=== PATIENT | male | born 1995 | race Hispanic/Latino ===

== ENCOUNTER 2020-09-25 21:45 | Emergency (ER) | payer BC, MEDICAID ==
[2020-09-25] MEDS ORDERED: SODIUM CHLORIDE 0.9% 1000 ML 1,000 ML IV ONE (22:03)
[2020-09-25] MEDS ORDERED: FAMOTIDINE 20 MG/2 ML INJ IV ONE (22:03)
[2020-09-25] MEDS ORDERED: ONDANSETRON 4 MG/2 ML INJ IV ONE (22:03)
[2020-09-25] MEDS ORDERED: MORPHINE 4 MG/1 ML INJ IV ONE (22:03)
[2020-09-25 22:47] LABS: Bilirubin,Urine NEG (Negative); Blood,Urine NEG (Negative); Color,Urine Straw (Yellow); Mucus,Urine FEW /HPF; Protein,Urine <15 mg/dL mg/dL (Negative); Urobilinogen,Urine < 2.0 mg/dL (<2.0); WBC,Urine < 1.0 /HPF (0.0-6.0)
[2020-09-25 23:31] LABS: Basophils % (Auto) 0.7 % (0.0-1.8); Eosinophils % (Auto) 0.8 % (0.0-4.3); Hematocrit 41.6 % (35.5-45.6); Hemoglobin 14.8 gm/dl (11.8-15.2); Lymphocytes # (Auto) 1.9 K/mm3 (1.2-5.4); Lymphocytes % (Auto) 34.1 % (13.4-35.0); Mean Corpuscular HGB Conc 36 % (32-34); Mean Corpuscular Volume 84 fl (84-94); Monocytes # (Auto) 0.3 K/mm3 (0.0-0.8); Monocytes % (Auto) 6.2 % (0.0-7.3); Platelet Count 189 K/mm3 (140-440); Red Blood Count 4.94 M/mm3 (3.65-5.03); Red Cell Distribution Width 12.9 % (13.2-15.2)
[2020-09-25] MEDS ORDERED: METOCLOPRAMIDE 10 MG/2 ML INJ IV ONE ×2 (23:50→23:52)
[2020-09-25] MEDS ORDERED: diphenhydrAMINE 50 MG/ML VIAL IV ONE ×2 (23:50→23:52)
[2020-09-25 23:51] LABS: Alanine Aminotransferase 15 units/L (7-56); Albumin 4.8 g/dL (3.9-5); BUN/Creatinine Ratio 12; Blood Urea Nitrogen 11 mg/dL (9-20); Calcium 8.7 mg/dL (8.4-10.2); Hemolysis Index 3
--- NOTE | 2020-09-25 23:58 | Ultrasound Report ---
ULTRASOUND ABDOMEN, LIMITED (RIGHT UPPER QUADRANT) INDICATION: RUQ Pain COMPARISON: None available. LIMITATIONS: None FINDINGS: Pancreas: Visualized portion shows no significant abnormality. Liver: Slight patchy fatty infiltration is seen. Liver is not enlarged. Hepatic length measures 14 cm . Gallbladder: No wall thickening is seen. No definite gallstones are noted. There may be a small amoun t of sludge. Bile ducts: Normal. Common Bile Duct measures 4 mm. Right Kidney: Visualized portions show no abnormality. Free fluid: None. Additional Findings: None. IMPRESSION: No acute abnormalities are seen. Signer Name: Pravin Dove MD Signed: 09/25/2020 11:53 PM Workstation Name: [id number]
[2020-09-26 00:10] VITALS: BP 136/85
[2020-09-26] MEDS ORDERED: HYDROmorphone 1 MG/1 ML INJ ONE (00:10)
--- NOTE | 2020-09-26 01:06 | Emergency Department Report ---
ED Abdominal Pain HPI - General Chief Complaint: Abdominal Pain Stated Complaint: ABD PAIN Source: patient Mode of arrival: Ambulatory Limitations: No Limitations - History of Present Illness Initial Comments: Patient is a 25-year-old white male with no past medical history presents to the ED with complaint of acute onset persistent intractable nausea and vomiting and right upper quadrant pain that radiates to the right flank and right lower quadrant area for the last 10 days worse in the last 4 days. Patient states that he has been to various hospital emergency departments and has had extensive work-up in the last 10 days. Patient also states that he had an appointment about 8 hours ago with the GI physician who after evaluation and realized how uncomfortable he was, advised him to come to the ED for evaluation. Patient states that he has not been able to eat or sleep because of worsening pain with nausea and vomiting. Patient denies fever, chills, dizziness, syncope, diarrhea, dysuria, urinary frequency and urgency, testicular pain, hematuria, chest pain or shortness of breath traumatic injury, low back pain, heavy lifting or fall. MD Complaint: abdominal pain (RUQ and RLQ abdominal pain), other (Nausea and vomiting) -: Sudden, days(s) (10) Location: RUQ, RLQ, R flank Radiation: RUQ, RLQ, R flank Migration to: no migration Severity scale (0 -10): 9 Quality: aching, sharp Consistency: constant Improves With: nothing Worsens With: vomiting, movement Associated Symptoms: denies other symptoms, nausea, vomiting, anorexia. denies: diarrhea, chills, constipation, dysuria, hematemesis, hematochezia, melena, other - Related Data Previous Rx's Medication Instructions Recorded Last Taken Type Famotidine [Pepcid] 20 mg PO Q12H #60 tablet 09/26/20 Unknown Rx HYDROcodone/APAP 5-325 [Foster 1 each PO Q6HR PRN #12 tablet 09/26/20 Unknown Rx 5/325] Ketorolac [Toradol] 10 mg PO Q8H PRN #20 tablet 09/26/20 Unknown Rx Ondansetron [Zofran Odt] 4 mg PO Q6HR PRN #20 tab.rapdis 09/26/20 Unknown Rx Allergies Allergy/AdvReac Type Severity Reaction Status Date / Time No Known Allergies Allergy Verified 09/26/20 00:12 ED Review of Systems ROS: Stated complaint: ABD PAIN Other details as noted in HPI Constitutional: denies: chills, fever Eyes: denies: eye pain, eye discharge, vision change ENT: denies: ear pain, throat pain Respiratory: denies: cough, shortness of breath, wheezing Cardiovascular: denies: chest pain, palpitations Endocrine: no symptoms reported Gastrointestinal: abdominal pain (Palpable severe RUQ, RLQ and Right flank tenderness with guarding and rebound), nausea, vomiting. denies: diarrhea, constipation, hematemesis, melena, hematochezia Genitourinary: denies: urgency, dysuria Musculoskeletal: denies: back pain, joint swelling, arthralgia Skin: denies: rash, lesions Neurological: denies: headache, weakness, paresthesias Psychiatric: denies: anxiety, depression Hematological/Lymphatic: denies: easy bleeding, easy bruising ED Past Medical Hx - Past Medical History Previous Medical History?: Yes Additional medical history: a-fib - Surgical History Past Surgical History?: Yes Hx Appendectomy: Yes - Social History Smoking Status: Never Smoker Substance Use Type: Marijuana - Medications Home Medications: Home Medications Medication Instructions Recorded Confirmed Last Taken Type Famotidine [Pepcid] 20 mg PO Q12H #60 tablet 09/26/20 Unknown Rx HYDROcodone/APAP 5-325 [Foster 1 each PO Q6HR PRN #12 tablet 09/26/20 Unknown Rx 5/325] Ketorolac [Toradol] 10 mg PO Q8H PRN #20 tablet 09/26/20 Unknown Rx Ondansetron [Zofran Odt] 4 mg PO Q6HR PRN #20 tab.rapdis 09/26/20 Unknown Rx ED Physical Exam - General Limitations: No Limitations General appearance: alert, in no apparent distress, anxious - Head Head exam: Present: atraumatic, normocephalic, normal inspection - Eye Eye exam: Present: normal appearance, PERRL, EOMI Pupils: Present: normal accommodation - ENT ENT exam: Present: normal exam, normal orophraynx, mucous membranes moist, TM's normal bilaterally, normal external ear exam - Neck Neck exam: Present: normal inspection, full ROM - Respiratory Respiratory exam: Present: normal lung sounds bilaterally. Absent: respiratory distress, wheezes, rales, rhonchi, chest wall tenderness, accessory muscle use, decreased breath sounds, prolonged expiratory - Cardiovascular Cardiovascular Exam: Present: regular rate, normal rhythm, normal heart sounds. Absent: systolic murmur, diastolic murmur, rubs, gallop - GI/Abdominal GI/Abdominal exam: Present: soft, tenderness (Palpable severe right upper quad rant, right lower quadrant and right flank rebound tenderness with guarding), guarding, rebound, normal bowel sounds. Absent: rigid, hyperactive bowel sounds, hypoactive bowel sounds, organomegaly - Extremities Exam Extremities exam: Present: normal inspection, full ROM, normal capillary refill - Back Exam Back exam: Present: normal inspection, full ROM, CVA tenderness (R). Absent: tenderness, CVA tenderness (L), muscle spasm, paraspinal tenderness, vertebral tenderness - Neurological Exam Neurological exam: Present: alert, oriented X3, CN II-XII intact, normal gait, reflexes normal - Psychiatric Psychiatric exam: Present: normal affect, normal mood, anxious - Skin Skin exam: Present: warm, dry, intact, normal color. Absent: rash ED Course Vital Signs 09/25/20 09/26/20 21:52 00:08 Temperature 97.9 F Pulse Rate 98 H 84 Respiratory 18 16 Rate Blood Pressure 183/83 Blood Pressure 136/85 [Left] O2 Sat by Pulse 100 100 Oximetry ED Medical Decision Making - Lab Data Result diagrams: 09/25/20 23:00 09/25/20 23:00 - Radiology Data Radiology results: report reviewed, image reviewed [facility] [address] [place] [address] Ultrasound Report Signed Patient: ARGENTINA BOWDEN MR#: [id number] : 1995 Acct:[id number] Age/Sex: 25 / M ADM Date: 09/25/20 Loc: ED Attending Dr: Ordering Physician: JENNY AMBROSE Date of Service: 09/25/20 Procedure(s): US abdomen limited Accession Number(s): [id number] cc: JENNY AMBROSE ULTRASOUND ABDOMEN, LIMITED (RIGHT UPPER QUADRANT) INDICATION: RUQ Pain COMPARISON: None available. LIMITATIONS: None FINDINGS: Pancreas: Visualized portion shows no significant abnormality. Liver: Slight patchy fatty infiltration is seen. Liver is not enlarged. Hepatic length measures 14 cm. Gallbladder: No wall thickening is seen. No definite gallstones are noted. There may be a small amount of sludge. Bile ducts: Normal. Common Bile Duct measures 4 mm. Right Kidney: Visualized portions show no abnormality. Free fluid: None. Additional Findings: None. IMPRESSION: No acute abnormalities are seen. Signer Name: Pravin Dove MD Signed: 09/25/2020 11:53 PM Workstation Name: [id number] Transcribed By: GJ Dictated By: Pravin Dove MD Electronically Authenticated By: Pravin Dove MD Signed Date/Time: 09/25/202352 DD/ 51 TD/TT: -- [facility] [address] [place] [address] Cat Scan Report Signed Patient: ARGENTINA BOWDEN MR#: [id number] : 1995 Acct:[id number] Age/Sex: 25 / M ADM Date: 09/25/20 Loc: ED Attending Dr: Ordering Physician: JENNY AMBROSE Date of Service: 09/26/20 Procedure(s): CT abdomen pelvis w con Accession Number(s): [id number] cc: JENNY AMBROSE CT ABDOMEN AND PELVIS WITH CONTRAST INDICATION: R.U.Q. abdominal pain CONTRAST: 100 cc Omnipaque 300 IV COMPARISON: Right upper quadrant ultrasound tonight All CT scans at this location are performed using CT dose reduction for ALARA by means of automated exposure control. FINDINGS: Lung bases are clear. No pneumoperitoneum is seen. No masses are noted. No focal inflammatory changes are seen. No free fluid is noted. No evidence of bowel obstruction is seen. No urinary obstructive changes are noted. Appendix appears to have been removed. Gallbladder shows fairly diffuse increased density. Gallbladder is mildly contracted. No definite wall thickening or inflammation is seen. No biliary dilatation is noted. IMPRESSION: No obvious acute abnormalities are seen. Gallbladder shows increased density which has an appearance most resembling vicarious contrast opacification. Ultrasound tonight showed no obvious calculi with only mild possible sludge. Signer Name: Pravin Dove MD Signed: 09/26/2020 1:20 AM Workstation Name: [id number] Transcribed By: BRODY Dictated By: Pravin Dove MD Electronically Authenticated By: Pravin Dove MD Signed Date/Time: 09/26/20119 DD/ 5 TD/TT: Print Cancel - Medical Decision Making This is a 25-year-old white male with no past medical history presents to the ED with complaint of acute onset persistent intractable nausea and vomiting and right upper quadrant pain that radiates to the right flank and right lower quadrant area for the last 10 days worse in the last 4 days. Patient states that he has been to various hospital emergency departments and has had extensive work-up in the last 10 days. Patient also states that he had an appointment about 8 hours ago with the GI physician who after evaluation and realized how uncomfortable he was, advised him to come to the ED for evaluation. Patient states that he has not been able to eat or sleep because of worsening pain with nausea and vomiting. In the ED, patient is alert and oriented x3 and is not in any distress but appears to be in significant pain. Patient was treated for pain in the ED and also given antiemetics and normal saline 1 L IV bolus x1. Patient was also treated with antacids and gallbladder ultrasound was unremarkable with no acute abnormalities. Abdomen pelvis CT scan with contrast showed no acute abnormalities in the abdomen or pelvis. On reevaluation, patient's pain and nausea and vomiting well controlled medication. Patient will discharge home on pain medications and advised to follow-up with his GI physician at [facility] in the next 1 for 48 hours for further evaluation. Patient was advised to also consider following up with his primary care physician in 3 to 5 days for reevaluation or return to the ED immediately if symptoms get worse. - Differential Diagnosis Gallstones; cholecystitis; Appendicitis; Kidney stones; Pancreatitis Critical care attestation.: If time is entered above; I have spent that time in minutes in the direct care of this critically ill patient, excluding procedure time. ED Disposition Clinical Impression: Nausea and vomiting in adult patient Abdominal pain Qualifiers: Abdominal location: generalized Qualified Code(s): R10.84 - Generalized abdominal pain Disposition: TO HOME OR SELFCARE Is pt being admited?: No Does the pt Need Aspirin: No Condition: Stable Instructions: Abdominal Pain, Adult, [id number], Nausea and Vomiting, Adult, [id number], Flank Pain, Adult, [id number] Additional Instructions: All lab test results are reviewed and are all nonactionable. Gallbladder ultrasound showed no acute abnormalities in the gallbladder and no sign of cholecystitis. Abdomen pelvis CT scan with contrast showed no acute abnormali ties. Therefore maintain a clear liquid diet for 12 to 24 hours, drink plenty of fluids, follow-up with your GI physician in the next 24 to 48 hours for reevaluation. Consider following up with your primary care physician in 3 to 5 days for reevaluation. Return to the ED immediately if symptoms get worse. Prescriptions: HYDROcodone/APAP 5-325 [Foster 5/325] 1 each PO Q6HR PRN #12 tablet PRN Reason: Pain Famotidine [Pepcid] 20 mg PO Q12H #60 tablet Ketorolac [Toradol] 10 mg PO Q8H PRN #20 tablet PRN Reason: Pain , Severe (7-10) Ondansetron [Zofran Odt] 4 mg PO Q6HR PRN #20 tab.rapdis PRN Reason: Nausea Referrals: [facility] [Provider Group] - 3-5 Days SHANNON JOHNSON MD [Staff Physician] - 3-5 Days Time of Disposition: 01:38 Print Language: [place]
--- NOTE | 2020-09-26 01:25 | Cat Scan Report ---
CT ABDOMEN AND PELVIS WITH CONTRAST INDICATION: R.U.Q. abdominal pain CONTRAST: 100 cc Omnipaque 300 IV COMPARISON: Right upper quadrant ultrasound tonight All CT scans at this location are performed using CT dose reduction for ALARA by means of automated e xposure control. FINDINGS: Lung bases are clear. No pneumoperitoneum is seen. No masses are noted. No focal inflammato ry changes are seen. No free fluid is noted. No evidence of bowel obstruction is seen. No urinary obs tructive changes are noted. Appendix appears to have been removed. Gallbladder shows fairly diffuse increased density. Gallbladder is mildly contracted. No definite wal l thickening or inflammation is seen. No biliary dilatation is noted. IMPRESSION: No obvious acute abnormalities are seen. Gallbladder shows increased density which has an appearance most resembling vicarious contrast opacification. Ultrasound tonight showed no obvious ca lculi with only mild possible sludge. Signer Name: Pravin Dove MD Signed: 09/26/2020 1:20 AM Workstation Name: [id number]
[2020-09-26] MEDS ORDERED: HYDROmorphone 1 MG/1 ML INJ IV ONE (01:35)
== END 2020-09-26 02:25 | disposition home or self-care (01) ==
LOC: ED 21:45
DX: R11.2 Nausea with vomiting, unspecified (principal); R10.11 Right upper quadrant pain; R10.31 Right lower quadrant pain; F12.90 Cannabis use, unspecified, uncomplicated; I48.91 Unspecified atrial fibrillation; Z90.49 Acquired absence of other specified parts of digestive tract; Z79.899 Other long term (current) drug therapy
CPT/HCPCS: 36415; 74177; 76705; 80053; 81001; 83690; 85025; 96361; 96374; 96375; 99284; J1170; J1200; J2270; J2405; J2765; J7030; Q9967

== ENCOUNTER 2020-09-27 16:15 | Emergency (ER) | payer MEDICAID ==
--- NOTE | 2020-09-27 16:59 | Event Note ---
ED Screening Note Date of service: 09/27/20 Time: 16:56 ED Screening Note: Patient presents to the ER today with complaints of right upper quadrant pain. He states that he is having gallbladder pain. He has been having this pain since June. He states that he has been evaluated with CT and ultrasound with no official diagnosis. He states that he went to the ER at [facility] last night and he was told that his pain could be related to a calculus gallbladder pain. He was given referral to the GI whom he is scheduled to see this Wednesday and he is supposed to have a HIDA scan and an MRI. He already has an established GI with Dr. Collins and he states that they also want to do a colonoscopy but he does not know when next scheduled. He states that he never been seen by a general surgeon. Patient states the main reason he is here today is because he is having uncontrollable nausea and vomiting unable to keep anything down including the antiemetics that he was prescribed. This initial assessment/diagnostic orders/clinical plan/treatment(s) is/are subject to change based on patients health status, clinical progression and re- assessment by fellow clinical providers in the ED. Further treatment and workup at subsequent clinical providers discretion. Patient/guardian urged not to elope from the ED as their condition may be serious if not clinically assessed and managed. Initial orders include: Labs
[2020-09-27 17:54] LABS: Basophils % (Auto) 0.7 % (0.0-1.8); Eosinophils # (Auto) 0.1 K/mm3 (0.0-0.4); Eosinophils % (Auto) 1.5 % (0.0-4.3); Hematocrit 42.9 % (35.5-45.6); Hemoglobin 15.1 gm/dl (11.8-15.2); Lymphocytes % (Auto) 35.3 % (13.4-35.0); Mean Corpuscular HGB Conc 35 % (32-34); Mean Corpuscular Volume 86 fl (84-94); Monocytes # (Auto) 0.4 K/mm3 (0.0-0.8); Monocytes % (Auto) 6.4 % (0.0-7.3); Platelet Count 200 K/mm3 (140-440); Red Blood Count 5.02 M/mm3 (3.65-5.03); Red Cell Distribution Width 12.7 % (13.2-15.2)
[2020-09-27 18:18] LABS: Alanine Aminotransferase 13 units/L (7-56); Albumin 4.8 g/dL (3.9-5); BUN/Creatinine Ratio 11; Blood Urea Nitrogen 11 mg/dL (9-20); Calcium 9.6 mg/dL (8.4-10.2); Hemolysis Index 8
[2020-09-27] MEDS ORDERED: ONDANSETRON 4 MG ODT TAB PO ONE (19:31)
[2020-09-27] MEDS ORDERED: KETOROLAC 30 MG/1 ML INJ IM ONE (19:31)
[2020-09-27] MEDS ORDERED: MORPHINE 4 MG/1 ML INJ IM ONE (19:31)
--- NOTE | 2020-09-27 19:37 | Emergency Department Report ---
ED Abdominal Pain HPI - General Chief Complaint: Abdominal Pain Stated Complaint: Abdominal pain Time Seen by Provider: 09/27/20 16:56 Source: patient Mode of arrival: Ambulatory Limitations: No Limitations - History of Present Illness Initial Comments: 25-year-old male, presents to ED with right upper quadrant pain x3 months, worse over the last 3 days. Patient was seen here for same 2 days ago. At that time he had an unremarkable abdominal ultrasound and CT scan. Patient states he went to [place] yesterday. He reports he has been given prescriptions for Peel, Zofran, Reglan, sucralfate, Pepcid. Patient actually has a GI appointment in 5 days, on WednesdayOctober 03. Patient states he is return to the ED tonight because the pain has gotten worse and he is unable to keep any food down. Patient denies any diarrhea. He does report low-grade fevers. Patient states his mother had the same issue and eventually had her gallbladder removed. MD Complaint: abdominal pain -: month(s) (3) Location: RUQ Radiation: back Migration to: no migration Severity: severe Quality: stabbing Consistency: constant Improves With: nothing Worsens With: eating Associated Symptoms: nausea, vomiting, fever. denies: diarrhea - Related Data Previous Rx's Medication Instructions Recorded Last Taken Type Famotidine [Pepcid] 20 mg PO Q12H #60 tablet 09/26/20 Unknown Rx HYDROcodone/APAP 5-325 [Peel 1 each PO Q6HR PRN #12 tablet 09/26/20 Unknown Rx 5/325] Ketorolac [Toradol] 10 mg PO Q8H PRN #20 tablet 09/26/20 Unknown Rx Ondansetron [Zofran Odt] 4 mg PO Q6HR PRN #20 tab.rapdis 09/26/20 Unknown Rx Promethazine HCl [Phenergan SUPPOS] 25 mg RC Q6HR #20 supp.rect 09/27/20 Unknown Rx Allergies Allergy/AdvReac Type Severity Reaction Status Date / Time No Known Allergies Allergy Verified 09/26/20 00:12 ED Review of Systems ROS: Stated complaint: MENTAL HEALTH Other details as noted in HPI Comment: All other systems reviewed and negative Constitutional: fever Respiratory: denies: shortness of breath Gastrointestinal: abdominal pain, nausea, vomiting. denies: diarrhea ED Past Medical Hx - Past Medical History Previous Medical History?: Yes Additional medical history: a-fib - Surgical History Hx Appendectomy: Yes - Social History Smoking Status: Unknown if ever smoked - Medications Home Medications: Home Medications Medication Instructions Recorded Confirmed Last Taken Type Famotidine [Pepcid] 20 mg PO Q12H #60 tablet 09/26/20 Unknown Rx HYDROcodone/APAP 5-325 [Peel 1 each PO Q6HR PRN #12 tablet 09/26/20 Unknown Rx 5/325] Ketorolac [Toradol] 10 mg PO Q8H PRN #20 tablet 09/26/20 Unknown Rx Ondansetron [Zofran Odt] 4 mg PO Q6HR PRN #20 tab.rapdis 09/26/20 Unknown Rx Promethazine HCl [Phenergan SUPPOS] 25 mg RC Q6HR #20 supp.rect 09/27/20 Unknown Rx ED Physical Exam - General Limitations: No Limitations General appearance: alert, in no apparent distress - Head Head exam: Present: atraumatic, normocephalic - Eye Eye exam: Present: normal appearance, EOMI - ENT ENT exam: Present: mucous membranes moist - Neck Neck exam: Present: normal inspection - Respiratory Respiratory exam: Present: normal lung sounds bilaterally. Absent: respiratory distress - Cardiovascular Cardiovascular Exam: Present: regular rate, normal rhythm - GI/Abdominal GI/Abdominal exam: Present: soft, tenderness (RUQ). Absent: distended - Extremities Exam Extremities exam: Present: normal inspection - Neurological Exam Neurological exam: Present: alert, oriented X3 - Psychiatric Psychiatric exam: Present: normal affect, normal mood - Skin Skin exam: Present: warm, dry, intact, normal color ED Course Vital Signs 09/27/20 09/27/20 09/27/20 16:26 19:00 20:01 Temperature 98.4 F Pulse Rate 70 71 60 Respiratory 18 15 16 Rate Blood Pressure 161/84 152/84 133/76 O2 Sat by Pulse 98 97 99 Oximetry 09/27/20 20:05 Temperature Pulse Rate Respiratory 18 Rate Blood Pressure O2 Sat by Pulse Oximetry ED Medical Decision Making - Lab Data Result diagrams: 09/27/20 17:29 09/27/20 17:29 - Medical Decision Making 25-year-old male presents to ED with right upper quadrant pain since June 2020. Patient was seen a couple days ago here in our ED and had normal CT and abdominal ultrasound. Labs are unremarkable tonight. Vital signs are stable. Patient given pain control and nausea medication. Will give prescription for Phenergan suppositories. Patient has upcoming appointment with GI in 5 days. He will be discharged at this time, return precautions given. Critical care attestation.: If time is entered above; I have spent that time in minutes in the direct care of this critically ill patient, excluding procedure time. ED Disposition Clinical Impression: Abdominal pain Disposition: DC- TO HOME OR SELFCARE Is pt being admited?: No Condition: Stable Instructions: Abdominal Pain, Adult, [id number] Prescriptions: Promethazine HCl [Phenergan SUPPOS] 25 mg RC Q6HR #20 supp.rect Referrals: REJI OZUNA MD [Staff Physician] - 3-5 Days Time of Disposition: 20:33
[2020-09-27 20:06] VITALS: BP 133/76
== END 2020-09-27 20:58 | disposition home or self-care (01) ==
LOC: ED 16:15
DX: R10.11 Right upper quadrant pain (principal); I48.91 Unspecified atrial fibrillation; Z90.49 Acquired absence of other specified parts of digestive tract; Z79.899 Other long term (current) drug therapy
CPT/HCPCS: 36415; 80053; 83690; 83735; 85025; 96372; 99283; J1885; J2270; Q0162

== ENCOUNTER 2020-11-08 23:45 | Observation (INO) | payer BC, MEDICAID ==
[2020-11-09] MEDS ORDERED: MORPHINE 4 MG/1 ML INJ IV ONE (03:39)
[2020-11-09] MEDS ORDERED: SODIUM CHLORIDE 0.9% 1000 ML 1,000 ML IV ONE (03:39)
[2020-11-09] MEDS ORDERED: HYDROmorphone 1 MG/1 ML INJ IV ONE ×2 (03:39→05:27)
--- NOTE | 2020-11-09 03:40 | Emergency Department Report ---
ED Abdominal Pain HPI - General Chief Complaint: Abdominal Pain Stated Complaint: GALL BLADDER PUI?: No Time Seen by Provider: 11/09/20 03:00 Source: patient Mode of arrival: Ambulatory Limitations: No Limitations - History of Present Illness Initial Comments: Patient is a 25-year-old male presents emergency room with complaints of right upper quadrant pain. Patient states he is also having nausea vomiting. Patient states he been having pain for 6 weeks but it was only 4 out of 10. Patient states that tonight the pain became so intense that he could stop moving or get comfortable. Patient states the pain is 10 of 10. Patient explains any right upper quadrant pain but states is nonradiating. Patient also complains of nausea vomiting. Patient states that his symptoms started 6 weeks ago. Patient states that he has been seen multiple times and finally 3 weeks ago he had an ultrasound done that he had gallbladder stones. Patient states that he has an appointment with a surgeon on November 18, 2020 to remove his gallbladder. Denies fever and chills. Patient denies blood in his vomitus. Patient denies diarrhea. Patient denies chest pain or shortness of breath. Patient denies recent travel. Patient denies recent international travel. Patient denies exposure to the novel coronavirus. Patient denies sick contacts. Patient denies fever and chills. Patient denies cough. Patient denies diarrhea. Patient denies coming in contact with anybody with symptoms of the novel coronavirus. . Complaint: abdominal pain -: Sudden Location: RUQ Radiation: none Migration to: no migration Severity: severe Severity scale (0 -10): 10 Quality: stabbing Consistency: constant Improves With: rest Worsens With: eating, movement Associated Symptoms: nausea, vomiting. denies: diarrhea, fever, chills, constipation, dysuria, hematemesis, hematochezia, melena, hematuria, syncope - Related Data Previous Rx's Medication Instructions Recorded Last Taken Type Famotidine [Pepcid] 20 mg PO Q12H #60 tablet 09/26/20 Unknown Rx HYDROcodone/APAP 5-325 [[place] 1 each PO Q6HR PRN #12 tablet 09/26/20 Unknown Rx 5/325] Ketorolac [Toradol] 10 mg PO Q8H PRN #20 tablet 09/26/20 Unknown Rx Ondansetron [Zofran Odt] 4 mg PO Q6HR PRN #20 tab.rapdis 09/26/20 Unknown Rx Promethazine HCl [Phenergan SUPPOS] 25 mg RC Q6HR #20 supp.rect 09/27/20 Unknown Rx Allergies Allergy/AdvReac Type Severity Reaction Status Date / Time No Known Allergies Allergy Verified 09/26/20 00:12 ED Review of Systems ROS: Stated complaint: GALL BLADDER Other details as noted in HPI Constitutional: denies: chills, fever Eyes: denies: eye pain, eye discharge, vision change ENT: denies: ear pain, throat pain Respiratory: denies: cough, shortness of breath, wheezing Cardiovascular: denies: chest pain, palpitations Endocrine: no symptoms reported Gastrointestinal: as per HPI, abdominal pain, nausea, vomiting. denies: diarrhea Genitourinary: denies: urgency, dysuria Musculoskeletal: denies: back pain, joint swelling, arthralgia Skin: denies: rash, lesions Neurological: denies: headache, weakness, paresthesias Psychiatric: denies: anxiety, depression Hematological/Lymphatic: denies: easy bleeding, easy bruising ED Past Medical Hx - Past Medical History Previous Medical History?: Yes Additional medical history: a-fib. Gallstones - Surgical History Past Surgical History?: Yes Hx Appendectomy: Yes - Family History Family history: no significant - Social History Smoking Status: Current Every Day Smoker Substance Use Type: Marijuana - Medications Home Medications: Home Medications Medication Instructions Recorded Confirmed Last Taken Type Famotidine [Pepcid] 20 mg PO Q12H #60 tablet 09/26/20 Unknown Rx HYDROcodone/APAP 5-325 [[place] 1 each PO Q6HR PRN #12 tablet 09/26/20 Unknown Rx 5/325] Ketorolac [Toradol] 10 mg PO Q8H PRN #20 tablet 09/26/20 Unknown Rx Ondansetron [Zofran Odt] 4 mg PO Q6HR PRN #20 tab.rapdis 09/26/20 Unknown Rx Promethazine HCl [Phenergan SUPPOS] 25 mg RC Q6HR #20 supp.rect 09/27/20 Unknown Rx ED Physical Exam - General Limitations: No Limitations General appearance: alert, in no apparent distress - Head Head exam: Present: atraumatic, normocephalic - Eye Eye exam: Present: normal appearance - ENT ENT exam: Present: mucous membranes moist - Neck Neck exam: Present: normal inspection - Respiratory Respiratory exam: Present: normal lung sounds bilaterally. Absent: respiratory distress - Cardiovascular Cardiovascular Exam: Present: regular rate, normal rhythm. Absent: systolic murmur, diastolic murmur, rubs, gallop - GI/Abdominal GI/Abdominal exam: Present: soft, tenderness, normal bowel sounds - Rectal Rectal exam: Present: deferred - Extremities Exam Extremities exam: Present: normal inspection - Back Exam Back exam: Present: normal inspection - Neurological Exam Neurological exam: Present: alert, oriented X3 - Psychiatric Psychiatric exam: Present: normal affect, normal mood - Skin Skin exam: Present: warm, dry, intact, normal color. Absent: rash ED Course Vital Signs 11/09/20 11/09/20 01:10 03:15 Temperature 98.6 F Pulse Rate 60 55 L Respiratory 18 16 Rate Blood Pressure 138/92 Blood Pressure 130/86 [Left] O2 Sat by Pulse 99 98 Oximetry - Reevaluation(s) Reevaluation #1: Patient has already been given 1 mg Dilaudid and Zofran. Patient still having significant pain that is unbearable and nausea vomiting. Patient will be given another dose of Dilaudid and Zofran. I discussed all results with patient. I discussed plan of care with patient. Patient agrees with plan of care and admission. Patient to be admitted to the hospitalist service. 11/09/20 05:19 - Consultations Consultation #1: Dr. Chan, general surgery consulted. 11/09/20 05:17 Consultation #2: Hospitalist consulted for admission. Hospitalist to admit patient. 11/09/20 05:19 ED Medical Decision Making - Lab Data Result diagrams: 11/09/20 03:43 11/09/20 03:43 - Radiology Data Radiology results: report reviewed ULTRASOUND ABDOMEN, COMPLETE INDICATION / CLINICAL INFORMATION: Abdominal Pain. COMPARISON: CT from 09/26/2020 FINDINGS: PANCREAS: Visualized portions of the pancreas are within normal limits. ABDOMINAL AORTA: No significant abnormality. IVC: No significant abnormality. LIVER: The liver demonstrates a normal echogenicity and morphology. PORTAL VEIN: Normal hepatopedal blood flow in the main portal vein. GALLBLADDER: The gallbladder is contracted with gallbladder sludge. Wall thickening of the gallbladder measuring 4 mm, likely related to incomplete distention. BILE DUCTS: Common bile duct measures 2 mm. No significant abnormality. KIDNEYS: Right: No significant abnormality. Left: No significant abnormality. SPLEEN: No significant abnormality. FREE FLUID: None. ADDITIONAL FINDINGS: None. IMPRESSION: 1. Mild wall thickening of the gallbladder is likely related to incomplete distention. There is sludge. No additional sonographic findings of cholecystitis. 2. No other significant abnormality. - Medical Decision Making Patient is a 25-year-old male who presents emergency room with complaints of abdominal pain and nausea vomiting. Patient has had abdominal pain for 6 weeks but they have ER visit, the patient had severe abdominal pain and nausea vomiting. Patient's abdominal pain and nausea vomiting intractable. Patient was given pain meds and antiemetics and continue to have nausea vomiting and pain. Patient had labs done which were essentially unremarkable. Patient was really tender over the right upper quadrant on exam. Patient had an ultrasound of the gallbladder and it shows gallbladder thickening with sludge and gallstones. Since the patient is so tender and continued to have intractable nausea vomiting the patient was admitted to the hospitalist service. General surgery consulted. Patient was given Zosyn and fluids. Patient made n.p.o. Critical care time documented due to the multiple reassessments, prolonged time at the bedside, interpretation of diagnostics and labs. - Differential Diagnosis Cholecystitis, cholelithiasis, biliary colic, nausea, vomiting, abd pain Critical Care Time: Yes Critical care time in (mins) excluding proc time.: 35 Critical care attestation.: If time is entered above; I have spent that time in minutes in the direct care of this critically ill patient, excluding procedure time. Critical Care Time: 35 minutes ED Disposition Clinical Impression: Biliary colic symptom, Intractable nausea and vomiting, Intractable abdominal pain, Acute cholecystitis Abdominal pain Qualifiers: Abdominal location: right upper quadrant Qualified Code(s): R10.11 - Right upper quadrant pain Cholelithiasis Qualifiers: Cholelithiasis location: gallbladder Cholecystitis presence: with cholecystitis Cholecystitis acuity: acute Biliary obstruction: without biliary obstruction Qualified Code(s): K80.00 - Calculus of gallbladder with acute cholecystitis without obstruction Disposition: DC-09 OP ADMIT IP TO THIS HOSP Is pt being admited?: Yes Does the pt Need Aspirin: No Condition: Critical Time of Disposition: 05:21
[2020-11-09] MEDS ORDERED: ONDANSETRON 4 MG/2 ML INJ ONE ×2 (03:42→08:01)
[2020-11-09] MEDS ORDERED: ONDANSETRON 4 MG/2 ML INJ IV ONE ×2 (03:43→05:27)
[2020-11-09 04:29] LABS: Basophils % (Auto) 0.5 % (0.0-1.8); Eosinophils # (Auto) 0.1 K/mm3 (0.0-0.4); Eosinophils % (Auto) 1.8 % (0.0-4.3); Hematocrit 42.5 % (35.5-45.6); Hemoglobin 14.9 gm/dl (11.8-15.2); Lymphocytes # (Auto) 1.7 K/mm3 (1.2-5.4); Lymphocytes % (Auto) 30.1 % (13.4-35.0); Mean Corpuscular HGB Conc 35 % (32-34); Mean Corpuscular Volume 86 fl (84-94); Monocytes # (Auto) 0.4 K/mm3 (0.0-0.8); Monocytes % (Auto) 6.5 % (0.0-7.3); Platelet Count 171 K/mm3 (140-440); Red Blood Count 4.93 M/mm3 (3.65-5.03); Red Cell Distribution Width 13.2 % (13.2-15.2)
[2020-11-09 04:46] LABS: Alanine Aminotransferase 12 units/L (7-56); Albumin 4.8 g/dL (3.9-5); Blood Urea Nitrogen 14 mg/dL (9-20); Calcium 9.9 mg/dL (8.4-10.2); Hemolysis Index 7
--- NOTE | 2020-11-09 04:59 | Ultrasound Report ---
ULTRASOUND ABDOMEN, COMPLETE INDICATION / CLINICAL INFORMATION: Abdominal Pain. COMPARISON: CT from 09/26/2020 FINDINGS: PANCREAS: Visualized portions of the pancreas are within normal limits. ABDOMINAL AORTA: No significant abnormality. IVC: No significant abnormality. LIVER: The liver demonstrates a normal echogenicity and morphology. PORTAL VEIN: Normal hepatopedal blood flow in the main portal vein. GALLBLADDER: The gallbladder is contracted with gallbladder sludge. Wall thickening of the gallbladde r measuring 4 mm, likely related to incomplete distention. BILE DUCTS: Common bile duct measures 2 mm. No significant abnormality. KIDNEYS: Right: No significant abnormality. Left: No significant abnormality. SPLEEN: No significant abnormality. FREE FLUID: None. ADDITIONAL FINDINGS: None. IMPRESSION: 1. Mild wall thickening of the gallbladder is likely related to incomplete distention. There is sludg e. No additional sonographic findings of cholecystitis. 2. No other significant abnormality. Signer Name: Sammy Youssef MD Signed: 11/09/2020 4:55 AM Workstation Name: [id number]
[2020-11-09 05:14] LABS: BUN/Creatinine Ratio 20; Bilirubin,Direct < 0.2 mg/dL (0-0.2)
[2020-11-09] MEDS ORDERED: PIPERACIL/TAZOBACTA 4.5/NS 100 4.5 GM/100 ML VIAL IV ONE (05:21)
[2020-11-09 06:06] VITALS: BP 112/64
[2020-11-09] MEDS ORDERED: HYDROmorphone 1 MG/1 ML INJ ONE (08:01)
--- NOTE | 2020-11-09 08:03 | History and Physical Report ---
History of Present Illness Date of examination: 11/09/20 Date of admission: 11/09/20 05:22 Chief complaint: abd pain History of present illness: Patient is a 25-year-old male presents emergency room with complaints of right upper quadrant pain. Patient states he is also having nausea vomiting. Patient states he been having pain for 6 weeks but it was only 4 out of 10. Patient states that tonight the pain became so intense that he could stop moving or get comfortable. Patient states the pain is 10 of 10. Patient explains any right upper quadrant pain but states is nonradiating. Patient also complains of nausea vomiting. Patient states that his symptoms started 6 weeks ago. Patient states that he has been seen multiple times and finally 3 weeks ago he had an ultrasound done that he had gallbladder stones. Patient states that he has an appointment with a surgeon on November 18, 2020 to remove his gallbladder. Denies fever and chills. Patient denies blood in his vomitus. Patient denies diarrhea. Patient denies chest pain or shortness of breath. Past History Past Medical History: No medical history Past Surgical History: No surgical history Social history: no significant social history Family history: no significant family history Medications and Allergies Allergies Allergy/AdvReac Type Severity Reaction Status Date / Time No Known Allergies Allergy Verified 09/26/20 00:12 Home Medications Medication Instructions Recorded Confirmed Last Taken Type Famotidine [Pepcid] 20 mg PO Q12H #60 tablet 09/26/20 Unknown Rx HYDROcodone/APAP 5-325 [[place] 1 each PO Q6HR PRN #12 tablet 09/26/20 Unknown Rx 5/325] Ketorolac [Toradol] 10 mg PO Q8H PRN #20 tablet 09/26/20 Unknown Rx Ondansetron [Zofran Odt] 4 mg PO Q6HR PRN #20 tab.rapdis 09/26/20 Unknown Rx Promethazine HCl [Phenergan SUPPOS] 25 mg RC Q6HR #20 supp.rect 09/27/20 Unknown Rx Review of Systems All systems: negative Exam - Constitutional Vitals: Temp Pulse Resp BP Pulse Ox 98.6 F 46 L 12 112/64 96 11/09/20 01:10 11/09/20 06:01 11/09/20 06:01 11/09/20 06:01 11/09/20 06:01 General appearance: Present: no acute distress, well-nourished - EENT Eyes: Present: PERRL ENT: hearing intact, clear oral mucosa - Neck Neck: Present: supple, normal ROM - Respiratory Respiratory effort: normal Respiratory: bilateral: CTA - Cardiovascular Heart Sounds: Present: S1 & S2. Absent: rub, click - Extremities Extremities: pulses symmetrical, No edema Peripheral Pulses: within normal limits - Abdominal General gastrointestinal: Present: soft, non-tender, non-distended, normal bowel sounds Male genitourinary: Present: normal - Integumentary Integumentary: Present: clear, warm, dry - Musculoskeletal Musculoskeletal: gait normal, strength equal bilaterally - Psychiatric Psychiatric: appropriate mood/affect, intact judgment & insight - Neurologic Neurologic: CNII-XII intact, moves all extremities Results - Labs CBC & Chem 7: 11/09/20 03:43 11/09/20 03:43 Labs: Laboratory Last Values WBC 5.5 K/mm3 (4.5-11.0) 11/09/20 03:43 RBC 4.93 M/mm3 (3.65-5.03) 11/09/20 03:43 Hgb 14.9 gm/dl (11.8-15.2) 11/09/20 03:43 Hct 42.5 % (35.5-45.6) 11/09/20 03:43 MCV 86 fl (84-94) 11/09/20 03:43 MCH 30 pg (28-32) 11/09/20 03:43 MCHC 35 % (32-34) H 11/09/20 03:43 RDW 13.2 % (13.2-15.2) 11/09/20 03:43 Plt Count 171 K/mm3 (140-440) 11/09/20 03:43 Lymph % (Auto) 30.1 % (13.4-35.0) 11/09/20 03:43 [place] % (Auto) 6.5 % (0.0-7.3) 11/09/20 03:43 Eos % (Auto) 1.8 % (0.0-4.3) 11/09/20 03:43 Baso % (Auto) 0.5 % (0.0-1.8) 11/09/20 03:43 Lymph # (Auto) 1.7 K/mm3 (1.2-5.4) 11/09/20 03:43 [place] # (Auto) 0.4 K/mm3 (0.0-0.8) 11/09/20 03:43 Eos # (Auto) 0.1 K/mm3 (0.0-0.4) 11/09/20 03:43 Baso # (Auto) 0.0 K/mm3 (0.0-0.1) 11/09/20 03:43 Seg Neutrophils % 61.1 % (40.0-70.0) 11/09/20 03:43 Seg Neutrophils # 3.4 K/mm3 (1.8-7.7) 11/09/20 03:43 Sodium 143 mmol/L (137-145) 11/09/20 03:43 Potassium 4.4 mmol/L (3.6-5.0) 11/09/20 03:43 Chloride 102.9 mmol/L (98-107) 11/09/20 03:43 Carbon Dioxide 31 mmol/L (22-30) H 11/09/20 03:43 Anion Gap 14 mmol/L 11/09/20 03:43 BUN 14 mg/dL (9-20) 11/09/20 03:43 Creatinine 0.7 mg/dL (0.8-1.3) L 11/09/20 03:43 Estimated GFR > 60 ml/min 11/09/20 03:43 BUN/Creatinine Ratio 20 % 11/09/20 03:43 Glucose 93 mg/dL (75-100) 11/09/20 03:43 Calcium 9.9 mg/dL (8.4-10.2) 11/09/20 03:43 Total Bilirubin 0.20 mg/dL (0.1-1.2) 11/09/20 03:43 Direct Bilirubin < 0.2 mg/dL (0-0.2) 11/09/20 03:43 Indirect Bilirubin 0.0 mg/dL 11/09/20 03:43 AST 13 units/L (5-40) 11/09/20 03:43 ALT 12 units/L (7-56) 11/09/20 03:43 Alkaline Phosphatase 66 units/L (35-129) 11/09/20 03:43 Total Protein 6.4 g/dL (6.3-8.2) 11/09/20 03:43 Albumin 4.8 g/dL (3.9-5) 11/09/20 03:43 Albumin/Globulin Ratio 3.0 % 11/09/20 03:43 Lipase 31 units/L (13-60) 11/09/20 03:43 Assessment and Plan Assessment and plan: Acute cholecystitis. Abdominal ultrasound reveals gallbladder wall thickening. Surgery consultation pending. Patient had a previous ultrasound that revealed cholelithiasis. Await surgery recommendations. Start empiric antibiotics.
[2020-11-09] MEDS ORDERED: HYDROmorphone 1 MG/1 ML INJ IV PRN (08:08)
[2020-11-09] MEDS ORDERED: ONDANSETRON 4 MG/2 ML INJ IV PRN ×2 (08:08→09:00)
[2020-11-09] MEDS ORDERED: ACETAMINOPHEN 325 MG TAB PO PRN (09:00)
[2020-11-09] MEDS ORDERED: MORPHINE 4 MG/1 ML INJ IV PRN (09:00)
[2020-11-09] MEDS: HEPARIN 5,000 UNIT/1 ML VIAL SUB-Q SCH ×2 (09:10→14:38)
[2020-11-09] MEDS ORDERED: MORPHINE 2 MG/1 ML INJ IV PRN (10:00)
[2020-11-09] MEDS ORDERED: D5W/0.45% NACL 1,000 ML IV SCH (11:00)
[2020-11-09] MEDS: oxyCODONE /ACETAMINOPHEN 5-325MG TAB PO PRN ×2 (12:40→20:52)
[2020-11-09] MEDS ORDERED: PIPERACIL/TAZOBACTA 4.5/NS 100 4.5 GM/100 ML VIAL IV SCH (14:00)
--- NOTE | 2020-11-09 20:21 | Consultation ---
History of Present Illness Consult date: 11/09/20 Reason for consult: abdominal pain - History of present illness History of present illness: 25 yo male with a 6 week h/o episodic RUQ pain associated with nausea and vomiting. The pain occurs after fatty food ingestion and can last hours. The episodes have been getting worse. Pt denies hematemesis, melena or hematochezia. Both parents had gallbladder disease in their 20's (mother) and 30's (father). Pt is much improved now c/w ER presentation. He is no longer in pain and wants to eat. Past History Past Medical History: No medical history Past Surgical History: No surgical history, appendectomy Social history: no significant social history Family history: no significant family history Medications and Allergies Allergies Allergy/AdvReac Type Severity Reaction Status Date / Time No Known Allergies Allergy Verified 09/26/20 00:12 Home Medications Medication Instructions Recorded Confirmed Last Taken Type Famotidine [Pepcid] 20 mg PO Q12H #60 tablet 09/26/20 Unknown Rx HYDROcodone/APAP 5-325 [[place] 1 each PO Q6HR PRN #12 tablet 09/26/20 Unknown Rx 5/325] Ketorolac [Toradol] 10 mg PO Q8H PRN #20 tablet 09/26/20 Unknown Rx Ondansetron [Zofran Odt] 4 mg PO Q6HR PRN #20 tab.rapdis 09/26/20 Unknown Rx Promethazine HCl [Phenergan SUPPOS] 25 mg RC Q6HR #20 supp.rect 09/27/20 Unknown Rx Active Meds: Active Medications Acetaminophen (Acetaminophen 325 Mg Tab) 650 mg PO Q4H PRN PRN Reason: Pain MILD(1-3)/Fever >100.5/VIVAS Heparin Sodium (Porcine) (Heparin 5,000 Unit/1 Ml Vial) 5,000 unit SUB-Q Q8HR ANGY Last Admin: 11/09/20 14:38 Dose: Not Given Documented by: Piperacillin Sod/Tazobactam Sod (Zosyn/Ns 4.5gm/100ml) 4.5 gm in 100 mls @ 200 mls/hr IV Q8H ANGY; Protocol Last Admin: 11/09/20 14:40 Dose: 200 mls/hr Documented by: Dextrose/Sodium Chloride (D5/0.45ns) 1,000 mls @ 75 mls/hr IV DIRECT [facility] Last Admin: 11/09/20 11:01 Dose: 75 mls/hr Documented by: Morphine Sulfate (Morphine 2 Mg/1 Ml Inj) 2 mg IV Q4H PRN PRN Reason: Pain , Severe (7-10) Last Admin: 11/09/20 14:44 Dose: 2 mg Documented by: Ondansetron HCl (Ondansetron 4 Mg/2 Ml Inj) 4 mg IV Q8H PRN PRN Reason: Nausea And Vomiting Last Admin: 11/09/20 10:39 Dose: 4 mg Documented by: Oxycodone/Acetaminophen (Oxycodone /Acetaminophen 5-325mg Tab) 1 tab PO Q6H PRN PRN Reason: Pain, Moderate (4-6) Last Admin: 11/09/20 12:40 Dose: 1 tab Documented by: Sodium Chloride (Sodium Chloride 0.9% 10 Ml Flush Syringe) 10 ml IV BID [facility] Last Admin: 11/09/20 10:29 Dose: Not Given Documented by: Sodium Chloride (Sodium Chloride 0.9% 10 Ml Flush Syringe) 10 ml IV PRN PRN PRN Reason: LINE FLUSH Review of Systems All systems: negative (none) Exam Vital Signs Temp Pulse Resp BP Pulse Ox 98.6 F 60 18 138/92 99 11/09/20 01:10 11/09/20 01:10 11/09/20 01:10 11/09/20 01:10 11/09/20 01:10 - General physical appearance Positive: well developed, well nourished, no distress - Eyes Positive: PERRL, normal occular movement - ENT Positive: normal pinna, normal nares, normal mucosa, no hearing loss, no congestion - Neck Positive: no masses, no bruits, trachea midline, no venous distension - Respiratory Positive: normal expansion, normal respiratory effort, clear to auscultation - Cardiovascular Rhythm: regular Heart Sounds: Present: S1 & S2. Absent: rub, click - Extremities Extremities: no ischemia, pulses symmetrical, No edema - Breasts Breasts: normal, no mass, no skin changes - Abdomen Abdomen: Present: soft, bowel sounds normal. Absent: tender, distended Hernia: none - Genitourinary Male Genitourinary: normal Female Genitourinary: normal - Integumentary no rash, no growths, no abnormal pigmentation - Neurologic Neurologic: alert and oriented to time, place and person, motor strength and sensation are grossly intact - Musculoskeletal normal gait, normal posture - Psychiatric Psychiatric: appropriate mood/affect, intact judgment & insight Results - Labs 11/09/20 03:43 11/09/20 03:43 Abnormal lab results 11/09/20 11/09/20 Range/Units 03:43 03:43 MCHC 35 H (32-34) % Carbon Dioxide 31 H (22-30) mmol/L Creatinine 0.7 L (0.8-1.3) mg/dL Diabetes panel 11/09/20 Range/Units 03:43 Sodium 143 (137-145) mmol/L Potassium 4.4 (3.6-5.0) mmol/L Chloride 102.9 (98-107) mmol/L Carbon Dioxide 31 H (22-30) mmol/L BUN 14 (9-20) mg/dL Creatinine 0.7 L (0.8-1.3) mg/dL Glucose 93 (75-100) mg/dL Calcium 9.9 (8.4-10.2) mg/dL AST 13 (5-40) units/L ALT 12 (7-56) units/L Alkaline Phosphatase 66 (35-129) units/L Total Protein 6.4 (6.3-8.2) g/dL Albumin 4.8 (3.9-5) g/dL Calcium panel 11/09/20 Range/Units 03:43 Calcium 9.9 (8.4-10.2) mg/dL Albumin 4.8 (3.9-5) g/dL Pituitary panel 11/09/20 Range/Units 03:43 Sodium 143 (137-145) mmol/L Potassium 4.4 (3.6-5.0) mmol/L Chloride 102.9 (98-107) mmol/L Carbon Dioxide 31 H (22-30) mmol/L BUN 14 (9-20) mg/dL Creatinine 0.7 L (0.8-1.3) mg/dL Glucose 93 (75-100) mg/dL Calcium 9.9 (8.4-10.2) mg/dL Adrenal panel 11/09/20 Range/Units 03:43 Sodium 143 (137-145) mmol/L Potassium 4.4 (3.6-5.0) mmol/L Chloride 102.9 (98-107) mmol/L Carbon Dioxide 31 H (22-30) mmol/L BUN 14 (9-20) mg/dL Creatinine 0.7 L (0.8-1.3) mg/dL Glucose 93 (75-100) mg/dL Calcium 9.9 (8.4-10.2) mg/dL Total Bilirubin 0.20 (0.1-1.2) mg/dL AST 13 (5-40) units/L ALT 12 (7-56) units/L Alkaline Phosphatase 66 (35-129) units/L Total Protein 6.4 (6.3-8.2) g/dL Albumin 4.8 (3.9-5) g/dL - Imaging US - abdomen: report reviewed Assessment and Plan - Patient Problems (1) Chronic cholecystitis Current Visit: Yes Status: Acute Plan to address problem: 1) Pt is now much improved. He desires to go home and have his surgery scheduled electively. I will obtain his RUQ US done at [facility] and get him on the schedule for laparoscopic cholecystectomy at 9 am on Thursday, November 12, 2020. Pt will avoid fatty foods or milk products until after his surgery. Will Rx Percocet 5/325, 1 po q6h prn pain, #20 and Zofran, 4 mg po q8h, #12 in case he needs these before his surgery.
== END 2020-11-09 20:55 | disposition home or self-care (01) ==
LOC: ED 23:45 → 3A 11-09 05:22 → 3B 11-09 09:53
PROVIDERS: ADMIT Internal Medicine Geriatric Medicine; ATTEND Internal Medicine Geriatric Medicine
DX: K80.00 Calculus of gallbladder with acute cholecystitis without obstruction (principal); I48.91 Unspecified atrial fibrillation; F17.200 Nicotine dependence, unspecified, uncomplicated; Z90.49 Acquired absence of other specified parts of digestive tract; Z79.899 Other long term (current) drug therapy; Z98.890 Other specified postprocedural states
CPT/HCPCS: 36415; 76700; 80048; 80076; 83690; 85025; 96361; 96365; 96366; 96375; 96376; 99291; G0378; J1170; J2270; J2405; J2543; J7030

== ENCOUNTER 2020-11-10 21:48 | Emergency (ER) | payer BC, MEDICAID ==
[2020-11-10 23:22] LABS: Basophils % (Auto) 0.5 % (0.0-1.8); Eosinophils # (Auto) 0.1 K/mm3 (0.0-0.4); Eosinophils % (Auto) 1.4 % (0.0-4.3); Hematocrit 46.3 % (35.5-45.6); Hemoglobin 15.8 gm/dl (11.8-15.2); Lymphocytes # (Auto) 1.6 K/mm3 (1.2-5.4); Lymphocytes % (Auto) 22.9 % (13.4-35.0); Mean Corpuscular HGB Conc 34 % (32-34); Mean Corpuscular Volume 86 fl (84-94); Monocytes # (Auto) 0.5 K/mm3 (0.0-0.8); Monocytes % (Auto) 6.7 % (0.0-7.3); Platelet Count 202 K/mm3 (140-440)
[2020-11-10 23:40] LABS: Alanine Aminotransferase 14 units/L (7-56); Albumin 5.1 g/dL (3.9-5); BUN/Creatinine Ratio 13; Blood Urea Nitrogen 10 mg/dL (9-20); Calcium 9.6 mg/dL (8.4-10.2); Hemolysis Index 5
[2020-11-10] MEDS ORDERED: MORPHINE 4 MG/1 ML INJ IV ONE (23:42)
[2020-11-10] MEDS ORDERED: ONDANSETRON 4 MG/2 ML INJ IV ONE (23:42)
[2020-11-10] MEDS ORDERED: SODIUM CHLORIDE 0.9% 1000 ML 1,000 ML IV ONE (23:42)
--- NOTE | 2020-11-11 00:07 | Emergency Department Report ---
HPI - General Chief Complaint: Abdominal Pain Time Seen by Provider: 11/10/20 23:33 - HPI HPI: This is a 25-year-old male who presents to the emergency department with a complaint of right upper quadrant abdominal pain, nausea and vomiting. The patient was just admitted to this hospital on 11/09 and was being followed by Dr. Chan. Patient was discharged home with the plan for an elective cholecystectomy on Wednesday. However, the patient says that he has had a return and increase of his abdominal pain a recent ultrasound showed cholelithiasis without cholecystitis. Otherwise, the patient says that he has a past medical history of "Covid heart, but is not on anticoagulation." in which he has had some paroxysmal A. fib ED Past Medical Hx - Past Medical History Additional medical history: a-fib. Gallstones - Surgical History Hx Appendectomy: Yes - Social History Smoking Status: Never Smoker - Medications Home Medications: Home Medications Medication Instructions Recorded Confirmed Last Taken Type Famotidine [Pepcid] 20 mg PO Q12H #60 tablet 09/26/20 11/09/20 Unknown Rx HYDROcodone/APAP 5-325 [[place] 1 each PO Q6HR PRN #12 tablet 09/26/20 11/09/20 Unknown Rx 5/325] Ketorolac [Toradol] 10 mg PO Q8H PRN #20 tablet 09/26/20 11/09/20 Unknown Rx Ondansetron [Zofran Odt] 4 mg PO Q6HR PRN #20 tab.rapdis 09/26/20 11/09/20 U nknown Rx Promethazine HCl [Phenergan SUPPOS] 25 mg RC Q6HR #20 supp.rect 09/27/20 11/09/20 Unknown Rx Ondansetron HCl [Zofran] 4 mg PO Q8HR PRN #12 tablet 11/09/20 Unknown Rx oxyCODONE /ACETAMINOPHEN [Percocet 1 tab PO Q4HR PRN #40 tab 11/09/20 Unknown Rx 5/325] Metoclopramide [Reglan] 10 mg PO TID PRN #20 tab 11/11/20 Unknown Rx ED Review of Systems ROS: Stated complaint: SURGERY 11/12/SEVERE NAUSEA/PAIN Other details as noted in HPI Comment: All other systems reviewed and negative Constitutional: denies: chills, fever Eyes: denies: eye pain, vision change ENT: denies: ear pain, throat pain Respiratory: denies: cough, shortness of breath Cardiovascular: denies: chest pain, palpitations Gastrointestinal: abdominal pain, nausea, vomiting. denies: diarrhea, constipation Genitourinary: denies: dysuria, discharge Musculoskeletal: denies: back pain, arthralgia Skin: denies: rash, lesions Neurological: denies: headache, weakness Physical Exam - Physical Exam Vital Signs: Vital Signs 11/10/20 22:54 Temperature 98.3 F Pulse Rate 60 Respiratory 18 Rate Blood Pressure 150/75 O2 Sat by Pulse 100 Oximetry Physical Exam: GENERAL: The patient is well-developed well-nourished. HENT: Normocephalic. Atraumatic. Patient has moist mucous membranes. EYES: Extraocular motions are intact. NECK: Supple. Trachea is midline. CHEST/LUNGS: Clear to auscultation. There is no respiratory distress noted. HEART/CARDIOVASCULAR: Regular. There is no tachycardia. There is no murmur. ABDOMEN: Abdomen is soft. There is some epigastric and right upper quadrant abdominal tenderness to palpation. No guarding. Patient has normal bowel sounds. There is no abdominal distention. SKIN: Skin is warm and dry. NEURO: The patient is awake, alert, and oriented. The patient is cooperative. The patient has no focal neurologic deficits. Normal speech. MUSCULOSKELETAL: There is no tenderness or deformity. There is no limitation range of motion. ED Course Vital Signs 11/10/20 22:54 Temperature 98.3 F Pulse Rate 60 Respiratory 18 Rate Blood Pressure 150/75 O2 Sat by Pulse 100 Oximetry ED Medical Decision Making - Lab Data Result diagrams: 11/10/20 23:04 11/10/20 23:04 Lab Results 11/10/20 11/10/20 Range/Units 23:04 23:04 WBC 7.2 (4.5-11.0) K/mm3 RBC 5.40 H (3.65-5.03) M/mm3 Hgb 15.8 H (11.8-15.2) gm/dl Hct 46.3 H (35.5-45.6) % MCV 86 (84-94) fl MCH 29 (28-32) pg MCHC 34 (32-34) % RDW 13.0 L (13.2-15.2) % Plt Count 202 (140-440) K/mm3 Lymph % (Auto) 22.9 (13.4-35.0) % [place] % (Auto) 6.7 (0.0-7.3) % Eos % (Auto) 1.4 (0.0-4.3) % Baso % (Auto) 0.5 (0.0-1.8) % Lymph # (Auto) 1.6 (1.2-5.4) K/mm3 [place] # (Auto) 0.5 (0.0-0.8) K/mm3 Eos # (Auto) 0.1 (0.0-0.4) K/mm3 Baso # (Auto) 0.0 (0.0-0.1) K/mm3 Seg Neutrophils % 68.5 (40.0-70.0) % Seg Neutrophils # 4.9 (1.8-7.7) K/mm3 Sodium 142 (137-145) mmol/L Potassium 4.7 (3.6-5.0) mmol/L Chloride 102.2 (98-107) mmol/L Carbon Dioxide 29 (22-30) mmol/L Anion Gap 16 mmol/L BUN 10 (9-20) mg/dL Creatinine 0.8 (0.8-1.3) mg/dL Estimated GFR > 60 ml/min BUN/Creatinine Ratio 13 % Glucose 93 (75-100) mg/dL Calcium 9.6 (8.4-10.2) mg/dL Total Bilirubin 0.30 (0.1-1.2) mg/dL AST 15 (5-40) units/L ALT 14 (7-56) units/L Alkaline Phosphatase 67 (35-129) units/L Total Protein 7.2 (6.3-8.2) g/dL Albumin 5.1 H (3.9-5) g/dL Albumin/Globulin Ratio 2.4 % Lipase 38 (13-60) units/L - Radiology Data Radiology results: report reviewed LIMITED RUQ ABDOMINAL ULTRASOUND INDICATION / CLINICAL INFORMATION: Recent x of cholelithiasis, increased pain, N/V. COMPARISON: Ultrasound from 11/09/2020 FINDINGS: PANCREAS: Visualized portions of the pancreas are within normal limits. ABDOMINAL AORTA: No significant abnormality. IVC: No significant abnormality. LIVER: The liver measures 12.1 cm in length. The liver demonstrates a normal echogenicity and morphology. PORTAL VEIN: Normal hepatopedal blood flow in the main portal vein. GALLBLADDER: There is cholelithiasis and sludge. No gallbladder wall thickening or pericholecystic fluid. BILE DUCTS: No significant abnormality. Common bile duct measures 2 mm. RIGHT KIDNEY: No significant abnormality visualized. FREE FLUID: None. ADDITIONAL FINDINGS: None. IMPRESSION: Sludge and stones in the gallbladder without additional sonographic findings of cholecystitis. - Medical Decision Making This patient has a history of cholelithiasis for which she is due to have a cholecystectomy Wednesday. However the patient had increased abdominal pain and a return of his nausea with vomiting. On examination there is reproducible epigastric and right upper quadrant abdominal tenderness to palpation. However the abdomen appears soft, nondistended, and nontoxic in appearance. Labs have been mostly unremarkable including CBC and metabolic panel. Patient was given IV fluid resuscitation, IV analgesia and IV antiemetics. A repeat ultrasound shows cholelithiasis without signs of cholecystitis. The patient was reevaluated multiple times over multiple hours and appears impro leno. He was able to pass an oral challenge. He will be discharged home with a prescription for Reglan and has been instructed to follow-up on Wednesday for his previously scheduled cholecystectomy. He will return to the emergency department with any worsening of his symptoms or with any acute distress. Critical Care Time: No Critical care attestation.: If time is entered above; I have spent that time in minutes in the direct care of this critically ill patient, excluding procedure time. ED Disposition Clinical Impression: Biliary colic symptom Cholelithiasis Qualifiers: Cholelithiasis location: gallbladder Cholecystitis presence: without cholecystitis Biliary obstruction: without biliary obstruction Qualified Code(s): K80.20 - Calculus of gallbladder without cholecystitis without obstruction Abdominal pain Qualifiers: Abdominal location: unspecified location Qualified Code(s): R10.9 - Unspecified abdominal pain Disposition: TO HOME OR SELFCARE Is pt being admited?: No Condition: Stable Instructions: Cholelithiasis, Biliary Colic, Adult, Nausea and Vomiting, Adult Additional Instructions: Increase your oral rehydration. Please follow-up tomorrow for your surgery with Dr. Chan. Please avoid any alcohol, spicy food, fried or greasy food. Return to the emergency department with any worsening of your symptoms, new or concerning symptoms not addressed during this current emergency department visit, or with any acute distress. Prescriptions: Metoclopramide [Reglan] 10 mg PO TID PRN #20 tab PRN Reason: Nausea Time of Disposition: 04:30
[2020-11-11] MEDS ORDERED: ONDANSETRON 4 MG/2 ML INJ IV ONE (01:49)
[2020-11-11] MEDS ORDERED: HYDROmorphone 1 MG/1 ML INJ IV ONE (01:55)
[2020-11-11] MEDS ORDERED: METOCLOPRAMIDE 10 MG/2 ML INJ IV ONE (03:08)
--- NOTE | 2020-11-11 03:57 | Ultrasound Report ---
LIMITED RUQ ABDOMINAL ULTRASOUND INDICATION / CLINICAL INFORMATION: Recent x of cholelithiasis, increased pain, N/V. COMPARISON: Ultrasound from 11/09/2020 FINDINGS: PANCREAS: Visualized portions of the pancreas are within normal limits. ABDOMINAL AORTA: No significant abnormality. IVC: No significant abnormality. LIVER: The liver measures 12.1 cm in length. The liver demonstrates a normal echogenicity and morpho logy. PORTAL VEIN: Normal hepatopedal blood flow in the main portal vein. GALLBLADDER: There is cholelithiasis and sludge. No gallbladder wall thickening or pericholecystic fl uid. BILE DUCTS: No significant abnormality. Common bile duct measures 2 mm. RIGHT KIDNEY: No significant abnormality visualized. FREE FLUID: None. ADDITIONAL FINDINGS: None. IMPRESSION: Sludge and stones in the gallbladder without additional sonographic findings of cholecystitis. Otherwise, no significant abnormality. Signer Name: Sammy Youssef MD Signed: 11/11/2020 3:52 AM Workstation Name: [id number]
[2020-11-11 07:28] VITALS: BP 129/66
== END 2020-11-11 05:30 | disposition home or self-care (01) ==
LOC: ED 21:48
DX: K80.50 Calculus of bile duct without cholangitis or cholecystitis without obstruction (principal); K80.20 Calculus of gallbladder without cholecystitis without obstruction; R10.11 Right upper quadrant pain; I48.91 Unspecified atrial fibrillation; Z90.49 Acquired absence of other specified parts of digestive tract; Z79.899 Other long term (current) drug therapy
CPT/HCPCS: 36415; 76705; 80053; 83690; 85025; 96361; 96374; 96375; 96376; 99284; J1170; J2270; J2405; J2765; J7030

== ENCOUNTER 2020-11-11 21:46 | Observation (INO) | payer BC, MEDICAID ==
[2020-11-12 00:10] LABS: BUN/Creatinine Ratio 11; Blood Urea Nitrogen 10 mg/dL (9-20); Calcium 9.3 mg/dL (8.4-10.2); Hemolysis Index 8
[2020-11-12 00:14] LABS: Alanine Aminotransferase 13 units/L (7-56); Bilirubin,Direct < 0.2 mg/dL (0-0.2)
[2020-11-12 00:16] LABS: Basophils % (Auto) 0.6 % (0.0-1.8); Eosinophils # (Auto) 0.1 K/mm3 (0.0-0.4); Eosinophils % (Auto) 2.3 % (0.0-4.3); Hematocrit 44.2 % (35.5-45.6); Hemoglobin 15.2 gm/dl (11.8-15.2); Mean Corpuscular HGB Conc 34 % (32-34); Mean Corpuscular Volume 85 fl (84-94); Monocytes # (Auto) 0.4 K/mm3 (0.0-0.8); Monocytes % (Auto) 5.9 % (0.0-7.3); Platelet Count 212 K/mm3 (140-440)
[2020-11-12] MEDS ORDERED: ONDANSETRON 4 MG ODT TAB PO ONE (02:06)
[2020-11-12] MEDS ORDERED: KETOROLAC 10 MG TAB PO ONE (02:06)
[2020-11-12] MEDS ORDERED: METOCLOPRAMIDE 10 MG/2 ML INJ IV ONE (06:28)
[2020-11-12] MEDS ORDERED: SODIUM CHLORIDE 0.9% 1000 ML 1,000 ML IV ONE (06:28)
[2020-11-12] MEDS ORDERED: MORPHINE 4 MG/1 ML INJ IV ONE (06:28)
--- NOTE | 2020-11-12 06:28 | Emergency Department Report ---
ED General Adult HPI - General Chief complaint: Abdominal Pain Stated complaint: GALL BLADDER ATTACK PUI?: No Time Seen by Provider: 11/12/20 06:08 Source: patient, RN notes reviewed, old records reviewed Mode of arrival: Ambulatory Limitations: No Limitations - History of Present Illness Initial comments: The patient is a pleasant and cooperative 25-year-old gentleman. He was recently admitted to this hospital for presumed cholecystitis. He is subsequently discharged, and was scheduled to have an outpatient cholecystectomy this morning. His general surgeon of record is Dr. Chan. The patient presents to the ER today with a complaint of recurrent abdominal pain, nausea. He was seen in this department 24 hours ago for similar symptoms. The patient reports she has persistent pain, nausea, vomiting, with inability to tolerate liquid feeds. He denies Covid symptoms at this time. He had Covid a few months ago. He currently denies headache, neck pain, chest pain, shortness of breath, urinary symptoms. Abdominal pain is sharp and throbbing, increases with palpation, decreases with rest, and increases while taking food. Apparently, the patient's insurance company declined to approve his cholecystectomy because the patient did not have an elevated white blood cell count. -: Gradual, days(s) Location: abdomen Radiation: non-radiation Severity scale (0 -10): 8 Quality: other Consistency: other Improves with: other Worsens with: other - Related Data Previous Rx's Medication Instructions Recorded Last Taken Type Famotidine [Pepcid] 20 mg PO Q12H #60 tablet 09/26/20 Unknown Rx HYDROcodone/APAP 5-325 [[place] 1 each PO Q6HR PRN #12 tablet 09/26/20 Unknown Rx 5/325] Ketorolac [Toradol] 10 mg PO Q8H PRN #20 tablet 09/26/20 Unknown Rx Ondansetron [Zofran Odt] 4 mg PO Q6HR PRN #20 tab.rapdis 09/26/20 Unknown Rx Promethazine HCl [Phenergan SUPPOS] 25 mg RC Q6HR #20 supp.rect 09/27/20 Unknown Rx Ondansetron HCl [Zofran] 4 mg PO Q8HR PRN #12 tablet 11/09/20 Unknown Rx oxyCODONE /ACETAMINOPHEN [Percocet 1 tab PO Q4HR PRN #40 tab 11/09/20 Unknown Rx 5/325] Metoclopramide [Reglan] 10 mg PO TID PRN #20 tab 11/11/20 Unknown Rx Allergies Allergy/AdvReac Type Severity Reaction Status Date / Time No Known Allergies Allergy Verified 09/26/20 00:12 ED Review of Systems ROS: Stated complaint: GALL BLADDER ATTACK Other details as noted in HPI Constitutional: denies: fever, weakness Eyes: denies: eye discharge ENT: denies: epistaxis Respiratory: denies: cough Cardiovascular: denies: chest pain Gastrointestinal: abdominal pain, nausea, vomiting Genitourinary: denies: frequency, testicular pain Neurological: weakness Psychiatric: anxiety ED Past Medical Hx - Past Medical History Previous Medical History?: Yes Additional medical history: a-fib. Gallstones - Surgical History Past Surgical History?: Yes Hx Appendectomy: Yes - Social History Smoking Status: Never Smoker - Medications Home Medications: Home Medications Medication Instructions Recorded Confirmed Last Taken Type Famotidine [Pepcid] 20 mg PO Q12H #60 tablet 09/26/20 11/09/20 Unknown Rx HYDROcodone/APAP 5-325 [[place] 1 each PO Q6HR PRN #12 tablet 09/26/20 11/09/20 Unknown Rx 5/325] Ketorolac [Toradol] 10 mg PO Q8H PRN #20 tablet 09/26/20 11/09/20 Unknown Rx Ondansetron [Zofran Odt] 4 mg PO Q6HR PRN #20 tab.rapdis 09/26/20 11/09/20 Unknown Rx Promethazine HCl [Phenergan SUPPOS] 25 mg RC Q6HR #20 supp.rect 09/27/20 11/09/20 Unknown Rx Ondansetron HCl [Zofran] 4 mg PO Q8HR PRN #12 tablet 11/09/20 Unknown Rx oxyCODONE /ACETAMINOPHEN [Percocet 1 tab PO Q4HR PRN #40 tab 11/09/20 Unknown Rx 5/325] Metoclopramide [Reglan] 10 mg PO TID PRN #20 tab 11/11/20 Unknown Rx ED Physical Exam - General Limitations: No Limitations General appearance: alert, anxious - Head Head exam: Present: atraumatic, normocephalic - Eye Eye exam: Present: normal appearance, EOMI. Absent: nystagmus - ENT ENT exam: Present: normal exam, normal orophraynx, mucous membranes moist, normal external ear exam - Neck Neck exam: Present: normal inspection, full ROM. Absent: tenderness, meningismus - Respiratory Respiratory exam: Present: normal lung sounds bilaterally. Absent: respiratory distress, wheezes, rales, rhonchi, stridor, decreased breath sounds - Cardiovascular Cardiovascular Exam: Present: regular rate, normal rhythm, normal heart sounds. Absent: bradycardia, tachycardia, irregular rhythm, systolic murmur, diastolic murmur, rubs, gallop - GI/Abdominal GI/Abdominal exam: Present: soft, tenderness, guarding. Absent: distended, rebound, rigid, pulsatile mass - Rectal Rectal exam: Present: deferred - Extremities Exam Extremities exam: Present: normal inspection, full ROM, other (2+ pulses noted in the bilateral upper and lower extremities. There is no palpable cord. negative Homans sign. Muscular compartments are soft. The pelvis is stable.). Absent: pedal edema, calf tenderness - Back Exam Back exam: Present: normal inspection, full ROM. Absent: tenderness, CVA tenderness (R), CVA tenderness (L), paraspinal tenderness, vertebral tenderness - Neurological Exam Neurological exam: Present: alert, normal gait, other (No facial droop. Tongue midline. Extraocular movements intact bilaterally. Facial sensation intact to light touch in V1, V2, V3 distribution bilaterally. 5 and a 5 strength in 4 extremities. Sensation intact to light touch in 4 extremities.). Absent: motor sensory deficit - Psychiatric Psychiatric exam: Present: anxious - Skin Skin exam: Present: warm, dry, intact, normal color. Absent: rash ED Course Vital Signs 11/11/20 11/12/20 23:07 06:45 Temperature 98.6 F Pulse Rate 64 54 L Respiratory 18 20 Rate Blood Pressure 151/72 Blood Pressure 141/74 [Left] O2 Sat by Pulse 98 98 Oximetry ED Medical Decision Making - Lab Data Result diagrams: 11/11/20 23:34 11/11/20 23:34 Vital Signs 11/11/20 11/12/20 23:07 06:45 Temperature 98.6 F Pulse Rate 64 54 L Respiratory 18 20 Rate Blood Pressure 151/72 Blood Pressure 141/74 [Left] O2 Sat by Pulse 98 98 Oximetry Lab Results 11/11/20 11/11/20 11/11/20 Range/Units 23:34 23:34 23:34 WBC 6.2 (4.5-11.0) K/mm3 RBC 5.20 H (3.65-5.03) M/mm3 Hgb 15.2 (11.8-15.2) gm/dl Hct 44.2 (35.5-45.6) % MCV 85 (84-94) fl MCH 29 (28-32) pg MCHC 34 (32-34) % RDW 13.0 L (13.2-15.2) % Plt Count 212 (140-440) K/mm3 Lymph % (Auto) 32.0 (13.4-35.0) % [place] % (Auto) 5.9 (0.0-7.3) % Eos % (Auto) 2.3 (0.0-4.3) % Baso % (Auto) 0.6 (0.0-1.8) % Lymph # (Auto) 2.0 (1.2-5.4) K/mm3 [place] # (Auto) 0.4 (0.0-0.8) K/mm3 Eos # (Auto) 0.1 (0.0-0.4) K/mm3 Baso # (Auto) 0.0 (0.0-0.1) K/mm3 Seg Neutrophils % 59.2 (40.0-70.0) % Seg Neutrophils # 3.7 (1.8-7.7) K/mm3 Sodium 143 (137-145) mmol/L Potassium 4.9 (3.6-5.0) mmol/L Chloride 105.3 (98-107) mmol/L Carbon Dioxide 28 (22-30) mmol/L Anion Gap 15 mmol/L BUN 10 (9-20) mg/dL Creatinine 0.9 (0.8-1.3) mg/dL Estimated GFR > 60 ml/min BUN/Creatinine Ratio 11 % Glucose 92 (75-100) mg/dL Lactic Acid (0.7-2.0) mmol/L Calcium 9.3 (8.4-10.2) mg/dL Total Bilirubin (0.1-1.2) mg/dL Direct Bilirubin (0-0.2) mg/dL Indirect Bilirubin mg/dL AST (5-40) units/L ALT (7-56) units/L Alkaline Phosphatase (35-129) units/L Total Protein (6.3-8.2) g/dL Albumin (3.9-5) g/dL Albumin/Globulin Ratio % Amylase 67 (27-131) units/L Lipase (13-60) units/L 11/11/20 11/11/20 11/12/20 Range/Units 23:34 23:34 06:49 WBC (4.5-11.0) K/mm3 RBC (3.65-5.03) M/mm3 Hgb (11.8-15.2) gm/dl Hct (35.5-45.6) % MCV (84-94) fl MCH (28-32) pg MCHC (32-34) % RDW (13.2-15.2) % Plt Count (140-440) K/mm3 Lymph % (Auto) (13.4-35.0) % [place] % (Auto) (0.0-7.3) % Eos % (Auto) (0.0-4.3) % Baso % (Auto) (0.0-1.8) % Lymph # (Auto) (1.2-5.4) K/mm3 [place] # (Auto) (0.0-0.8) K/mm3 Eos # (Auto) (0.0-0.4) K/mm3 Baso # (Auto) (0.0-0.1) K/mm3 Seg Neutrophils % (40.0-70.0) % Seg Neutrophils # (1.8-7.7) K/mm3 Sodium (137-145) mmol/L Potassium (3.6-5.0) mmol/L Chloride (98-107) mmol/L Carbon Dioxide (22-30) mmol/L Anion Gap mmol/L BUN (9-20) mg/dL Creatinine (0.8-1.3) mg/dL Estimated GFR ml/min BUN/Creatinine Ratio % Glucose (75-100) mg/dL Lactic Acid 1.10 (0.7-2.0) mmol/L Calcium (8.4-10.2) mg/dL Total Bilirubin 0.30 (0.1-1.2) mg/dL Direct Bilirubin < 0.2 (0-0.2) mg/dL Indirect Bilirubin 0.1 mg/dL AST 16 (5-40) units/L ALT 13 (7-56) units/L Alkaline Phosphatase 62 (35-129) units/L Total Protein 7.1 (6.3-8.2) g/dL Albumin 5.0 (3.9-5) g/dL Albumin/Globulin Ratio 2.4 % Amylase (27-131) units/L Lipase 42 (13-60) units/L - Radiology Data Radiology results: report reviewed, image reviewed [address] [address] Ultrasound Report Signed Patient: ARGENTINA BOWDEN MR#: [id number] : 1995 Acct:[id number] Age/Sex: 25 / M ADM Date: 09/25/20 Loc: ED Attending Dr: Ordering Physician: JENNY AMBROSE Date of Service: 09/25/20 Procedure(s): US abdomen limited Accession Number(s): [id number] cc: JENNY AMBROSE ULTRASOUND ABDOMEN, LIMITED (RIGHT UPPER QUADRANT) INDICATION: RUQ Pain COMPARISON: None available. LIMITATIONS: None FINDINGS: Pancreas: Visualized portion shows no significant abnormality. Liver: Slight patchy fatty infiltration is seen. Liver is not enlarged. Hepatic length measures 14 cm. Gallbladder: No wall thickening is seen. No definite gallstones are noted. There may be a small amount of sludge. Bile ducts: Normal. Common Bile Duct measures 4 mm. Right Kidney: Visualized portions show no abnormality. Free fluid: None. Additional Findings: None. IMPRESSION: No acute abnormalities are seen. Signer Name: Pravin Dove MD Signed: 09/25/2020 11:53 PM Workstation Name: [id number] Transcribed By: GJ Dictated By: Pravin Dove MD Electronically Authenticated By: Pravin Dove MD Signed Date/Time: 09/25/20 2353 DD/ [address] [address] Cat Scan Report Signed Patient: ARGENTINA BOWDEN MR#: [id number] : 1995 Acct:[id number] Age/Sex: 25 / M ADM Date: 09/25/20 Loc: ED Attending Dr: Ordering Physician: JENNY AMBROSE Date of Service: 09/26/20 Procedure(s): CT abdomen pelvis w con Accession Number(s): [id number] cc: JENNY AMBROSE CT ABDOMEN AND PELVIS WITH CONTRAST INDICATION: R.U.Q. abdominal pain CONTRAST: 100 cc Omnipaque 300 IV COMPARISON: Right upper quadrant ultrasound tonight All CT scans at this location are performed using CT dose reduction for ALARA by means of automated exposure control. FINDINGS: Lung bases are clear. No pneumoperitoneum is seen. No masses are noted. No focal inflammatory changes are seen. No free fluid is noted. No evidence of bowel obstruction is seen. No urinary obstructive changes are noted. Appendix appears to have been removed. Gallbladder shows fairly diffuse increased density. Gallbladder is mildly contracted. No definite wall thickening or inflammation is seen. No biliary dilatation is noted. IMPRESSION: No obvious acute abnormalities are seen. Gallbladder shows increased density which has an appearance most resembling vicarious contrast opacification. Ultrasound tonight showed no obvious calculi with only mild possible sludge. Signer Name: Pravin Dove MD Signed: 09/26/2020 1:20 AM Workstation Name: [id number] Transcribed By: BRODY Dictated By: Pravin Dove MD Electronically Authenticated By: Pravin Dove MD Signed Date/Time: 09/26/20119 DD/ 0116 - Medical Decision Making Differential diagnosis, including but not limited to: Chronic cholecystitis, cyclic vomiting syndrome, sphincter of Oddi dysfunction, choledocholithiasis Assessment and plan: 25-year-old gentleman with recurrent abdominal pain, highly characterizable cholecystitis. This patient has bounced back within 24 hours of discharge and has failed outpatient management. In my professional opinion, absence of leukocytosis does not exclude a condition that would be improved with surgical intervention. Have discussed this with his surgeon of record, Dr. Chan. Admission is recommended. Antibiotics are recommended. Dr. Chan anticipates a possible peer to peer discussion with patient's insurance company to obtain approval and authorization for surgical intervention. Please note this patient was medicated with ketorolac prior to my personal evaluation. We will give the patient pain medication, nausea medication and fluids. He will be admitted to the medical service, the patient is highly desirous of this. Contacted Dr. Chan, he will follow in consultation. We discussed the patient's history, physical, laboratory studies, and prior imaging studies. Patient amenable to admission and hospitalization. Hospital physician, Dr. Olena Justin to admit to [facility] Critical care attestation.: If time is entered above; I have spent that time in minutes in the direct care o f this critically ill patient, excluding procedure time. ED Disposition Clinical Impression: Intractable abdominal pain, Intractable nausea and vomiting, Biliary colic symptom, Chronic cholecystitis Disposition: OP ADMIT IP TO THIS HOSP Is pt being admited?: Yes Does the pt Need Aspirin: No Condition: Good Referrals: PRIMARY CARE, [Primary Care Provider] - 3-5 Days
[2020-11-12] MEDS ORDERED: PIPERACIL/TAZOBACTA 4.5/NS 100 4.5 GM/100 ML VIAL IV ONE (06:45)
[2020-11-12] MEDS ORDERED: D5W/0.45% NACL 1,000 ML IV SCH (07:00)
--- NOTE | 2020-11-12 10:46 | History and Physical Report ---
History of Present Illness Date of examination: 11/12/20 Date of admission: 11/12/20 Chief complaint: Abdominal pain History of present illness: The patient is a 25-year-old gentleman with a history of cholelithiasis pending COVID-19 pneumonia presented to the hospital with persistent abdominal pain nausea vomiting and inability to tolerate diet. He was recently admitted to this hospital for presumed cholecystitis and was subsequently discharged, and was scheduled to have an outpatient cholecystectomy this morning. His general surgeon of record is Dr. Chan. But The patient presents to the ER today with a complaint of recurrent abdominal pain, nausea. Dr. Chan was notified and patient is on schedule for cholecystectomy. Hospitalist service has been requested transfer the patient in observation status. Past medical History: h/o COVID-19 pneumonia, cholelithiasis, history of paroxysmal atrial fibrillation not on anticoagulation Past surgical History: s/p appendectomy Social History: Lives with family, denies any smoking, drinking and elicit drug abuse. Family History: No significant family history for heart disease, diabetes, stroke or cancer Review of System: Constitutional: no fever, no chills, no weight loss Ears, eyes, nose, mouth and throat: no nasal congestion, no nasal discharge, no sinus pressure, no vision change, no red eye. Neck: No neck pain or rigidity. Cardiovascular: No chest pain, no orthopnea, no palpitations, no leg swelling Respiratory: No shortness of breath, no cough, no congestion, no wheezing Gastrointestinal: +abdominal pain, + nausea, + vomiting Genitourinary : no dysuria, no hematuria Musculoskeletal: no joint swelling or muscle ache Integumentary: no rash, no pruritis Neurological: no parathesias, no numbness, no tingling Endocrine: no cold or heat intolerance, no polyuria or polydipsia Hematologic/Lymphatic: no easy bruising, no easy bleeding, no gland swelling Allergic/Immunologic: no urticaria, no angioedema. Medications and Allergies Allergies Allergy/AdvReac Type Severity Reaction Status Date / Time No Known Allergies Allergy Verified 11/13/20 09:47 Home Medications Medication Instructions Recorded Confirmed Last Taken Type Famotidine [Pepcid] 20 mg PO Q12H #60 tablet 09/26/20 11/12/20 Unknown Rx HYDROcodone/APAP 5-325 [[place] 1 each PO Q6HR PRN #12 tablet 09/26/20 11/12/20 Unknown Rx 5/325] Ketorolac [Toradol] 10 mg PO Q8H PRN #20 tablet 09/26/20 11/12/20 Unknown Rx Ondansetron [Zofran Odt] 4 mg PO Q6HR PRN #20 tab.rapdis 09/26/20 11/12/20 Unknown Rx Promethazine HCl [Phenergan SUPPOS] 25 mg RC Q6HR #20 supp.rect 09/27/20 11/12/20 Unknown Rx Ondansetron HCl [Zofran] 4 mg PO Q8HR PRN #12 tablet 11/09/20 11/12/20 Unknown Rx oxyCODONE /ACETAMINOPHEN [Percocet 1 tab PO Q4HR PRN #40 tab 11/09/20 11/12/20 Unknown Rx 5/325] Metoclopramide [Reglan] 10 mg PO TID PRN #20 tab 11/11/20 11/12/20 Unknown Rx Ondansetron HCl [Zofran] 4 mg PO Q4H PRN 11/11/20 11/11/20 Unknown History oxyCODONE /ACETAMINOPHEN [Percocet 1 tab PO Q4HR PRN 11/11/20 11/11/20 Unknown History 5/325] oxyCODONE /ACETAMINOPHEN [Percocet 1 - 2 tab PO Q4HR PRN #40 tab 11/13/20 Unknown Rx 5/325] Active Meds: Active Medications Dextrose/Sodium Chloride (D5/0.45ns) 1,000 mls @ 100 mls/hr IV DIRECT ANGY Exam - Physical Exam Narrative exam: GENERAL: well-developed and well-nourished white male lying on bed appeared to be in no discomfort. HEENT: Normocephalic. Atraumatic. No conjunctival congestion or icterus. Patient has moist mucous membranes. NECK: Supple. Trachea midline. CHEST/LUNGS: Clear to auscultated bilaterally, breathing nonlabored. No wheezes crackles or rhonchi. HEART/CARDIOVASCULAR: Regular in rate and rhythm. S1 and S2 positive. ABDOMEN: Abdomen is soft, + RUQ tenderness. Patient has normal bowel sounds. SKIN: There is no rash. Warm and dry. NEURO: No focal motor deficit. Follows command. MUSCULOSKELETAL: No joint effusion or tenderness. EXTRIMITY: No edema, no cyanosis or clubbing. PSYCH: Cooperative. - Constitutional Vitals: Temp Pulse Resp BP Pulse Ox 98.6 F 54 L 20 141/74 98 11/11/20 23:07 11/12/20 06:45 11/12/20 06:45 11/12/20 06:45 11/12/20 06:45 Results - Labs CBC & Chem 7: 11/13/20 04:57 11/13/20 04:57 Labs: Abnormal lab results 11/11/20 Range/Units 23:34 RBC 5.20 H (3.65-5.03) M/mm3 RDW 13.0 L (13.2-15.2) % Assessment and Plan Acute cholecystitis History of COVID-19 pneumonia History of paroxysmal atrial fibrillation, NSR on tele DVT prophylaxis --Admit this patient to observation status --Consulted general surgery for cholecystectomy --Continue to monitor vitals, as needed pain medicine and antiemetics --We will initiate DVT prophylaxis with Lovenox following surgery --N.p.o., IV fluid, prophylactic antibiotics if recommended by general surgery
[2020-11-12] MEDS ORDERED: ONDANSETRON 4 MG/2 ML INJ IV ONE (10:47)
[2020-11-12] MEDS ORDERED: HYDROmorphone 1 MG/1 ML INJ IV ONE ×2 (10:47→23:45)
[2020-11-12] MEDS ORDERED: METOCLOPRAMIDE 10 MG/2 ML INJ IV PRN (11:30)
[2020-11-12] MEDS ORDERED: MORPHINE 2 MG/1 ML INJ IV PRN (11:30)
[2020-11-12 13:51] LABS: Basophils % (Auto) 0.7 % (0.0-1.8); Eosinophils # (Auto) 0.1 K/mm3 (0.0-0.4); Eosinophils % (Auto) 1.4 % (0.0-4.3); Hematocrit 44.9 % (35.5-45.6); Hemoglobin 15.4 gm/dl (11.8-15.2); Lymphocytes # (Auto) 1.6 K/mm3 (1.2-5.4); Lymphocytes % (Auto) 23.9 % (13.4-35.0); Mean Corpuscular HGB Conc 34 % (32-34); Mean Corpuscular Volume 86 fl (84-94); Monocytes # (Auto) 0.4 K/mm3 (0.0-0.8); Monocytes % (Auto) 5.3 % (0.0-7.3); Platelet Count 175 K/mm3 (140-440); Red Blood Count 5.25 M/mm3 (3.65-5.03); Red Cell Distribution Width 12.6 % (13.2-15.2)
[2020-11-12 14:30] LABS: Alanine Aminotransferase 11 units/L (7-56); Albumin 4.5 g/dL (3.9-5); BUN/Creatinine Ratio 14; Blood Urea Nitrogen 11 mg/dL (9-20); Hemolysis Index 14
--- NOTE | 2020-11-12 14:54 | Procedure Note ---
Date of procedure: 11/12/20 Pre-op diagnosis: Chronic cholecystisis Post-op diagnosis: same Procedure: Laparoscopic cholecystectomy Description of procedure: Pt was placed supine on the OR table. GETA was administered. Abdomen was prepped and draped. Peritoneal cavity was accessed via a small infraumbilical incision. Tammy port was inserted into the peritoneal cavity and pneumoperitoneum established. 10 mm subxiphoid, 5 mm RUQ and 5 mm right lateral abdominal ports were inserted into the peritoneal cavity under direct vision. Pt was placed head and right side up. Fundus of the gallbladder was grasped and was retracted cephalad. Neck of the gallbladder, cystic artery and cystic duct were skeletonized and the critical view of safety obtained. The cystic artery and duct were doubly clipped and divided. Gallbladder was dissected off of it's hepatic fossa with cautery. Gallbladder was placed in an endobag and the endobag removed via the infraumbilical fascial defect. Tammy port was replaced and pneumoperitoneum re-established. The upper abdominal ports were removed with no bleeding from the port sites under low pressure. Infraumbilical fascial defect was closed with 2 interrupted sutures of 2-0 Vicryl. Skin incisions were closed with running subcuticular sutures of 4-0 Monocryl. Skin glue was applied to all incisions. Pt tolerated the procedure well. Pt was extubated in the OR and was taken to PACU in stable condition. Anesthesia: GETA Surgeon: ALVARO GALARZA Estimated blood loss: minimal Pathology: list (Gallbladder) Specimen disposition: to lab Condition: stable Disposition: PACU
[2020-11-12] MEDS ORDERED: KETOROLAC 30 MG/1 ML INJ IV PRN (16:30)
[2020-11-12] MEDS ORDERED: PIPERACILLIN/TAZOBACTAM 3.375 3.375 GM/50 ML BAG IV SCH (17:00)
[2020-11-12] MEDS ORDERED: D5W/0.45% NACL/KCL 10 MEQ 10 MEQ/1,000 ML BAG IV SCH (17:00)
[2020-11-12] MEDS ORDERED: ACETAMINOPHEN 325 MG TAB PO PRN (17:06)
[2020-11-12] MEDS: MORPHINE 4 MG/1 ML INJ IV PRN ×2 (18:35→21:53)
[2020-11-12] MEDS: ONDANSETRON 4 MG/2 ML INJ IV PRN (18:35)
[2020-11-12] MEDS: PIPERACILLIN/TAZOBACTAM 3.375 3.375 GM/50 ML BAG IV SCH (22:39)
[2020-11-13] MEDS: ONDANSETRON 4 MG/2 ML INJ IV PRN (03:21)
[2020-11-13] MEDS: MORPHINE 4 MG/1 ML INJ IV PRN ×2 (03:21→09:42)
[2020-11-13 05:22] LABS: Basophils % (Auto) 0.2 % (0.0-1.8); Hematocrit 42.5 % (35.5-45.6); Lymphocytes # (Auto) 0.8 K/mm3 (1.2-5.4); Mean Corpuscular HGB Conc 35 % (32-34); Mean Corpuscular Volume 85 fl (84-94); Monocytes # (Auto) 0.4 K/mm3 (0.0-0.8); Monocytes % (Auto) 4.7 % (0.0-7.3); Platelet Count 183 K/mm3 (140-440); Red Blood Count 5.02 M/mm3 (3.65-5.03); Red Cell Distribution Width 12.8 % (13.2-15.2)
[2020-11-13 05:39] LABS: Alanine Aminotransferase 31 units/L (7-56); Albumin 4.4 g/dL (3.9-5); Blood Urea Nitrogen 9 mg/dL (9-20); Hemolysis Index 5
[2020-11-13 05:44] LABS: BUN/Creatinine Ratio 13
[2020-11-13] MEDS ORDERED: HYDROmorphone 1 MG/1 ML INJ IM ONE (05:59)
[2020-11-13] MEDS: PIPERACILLIN/TAZOBACTAM 3.375 3.375 GM/50 ML BAG IV SCH (06:22)
[2020-11-13 08:40] VITALS: BP 112/50
--- NOTE | 2020-11-13 11:02 | Discharge Summary ---
Providers - Providers Date of Admission: 11/12/20 16:07 Date of discharge: 11/13/20 Attending physician: ASHISH GARCÍA 11/12/20 06:28 Consult to Physician [CONS] Urgent Comment: Consulting Provider: ALVARO GALARZA Physician Instructions: Reason For Exam: biliary colic Primary care physician: [employer]ECUTIVE Hospitalization Reason for admission: Chronic cholecystitis Condition: Good Procedures: Laparoscopic cholecystectomy on 11/12/20 Hospital course: Unremarkable. Disposition: DC-01 TO HOME OR SELFCARE Final Discharge Diagnosis (Prints w/discharge instructions): Chronic cholecystitis Time spent for discharge: 30 minutes - Discharge Diagnoses (1) Chronic cholecystitis Status: Acute Core Measure Documentation - Palliative Care Palliative Care/ Comfort Measures: Not Applicable - Core Measures Any of the following diagnoses?: none - VTE Discharge Requirements Deep Vein Thrombosis/Pulmonary Embolism Present on Admission: No Has pt received <5 days of overlap therapy or INR<2.0: No Anticoagulant overlap therapy prescribed at discharge: No Contraindication No Overlap Therapy order at DC: Not Indicated - Acute SD Discharge Requirements Aspirin at discharge: No Reason for no aspirin on DC: Patient refusal AMY/ARB for LVSD if EF <40%: Not Applicable Reason for no AMY/ARB: Patient refusal Beta rc at discharge: No Reason for no beta rc on DC: Patient refusal Statin for LDL = or >100 mg/dl on DC: Not Applicable Reason for no statin on DC: Patient refusal - Heart Failure Discharge Requirements MAY/ARB for LVSD if EF <40%: Not Applicable Reason for no AMY/ARB: Patient refusal Beta rc at discharge: No Reason for no beta rc on DC: Patient refusal - Stroke Discharge Requirements Statin for LDL = or >70 mg/dl on DC: Not Applicable Reason for no statin on DC: Patient Refusal Anticoag for atrial fib/atrial flutter: Not Applicable Reason for no anticoag for AF/F on DC: Patient Refusal Antithrombotic for ischemic stroke: No Reason for no antithrombotic on DC: Patient Refusal Exam - Constitutional Vitals: Temp Pulse Resp BP Pulse Ox 98.0 F 52 L 16 112/50 98 11/13/20 07:43 11/13/20 07:43 11/13/20 07:43 11/13/20 07:43 11/13/20 07:43 General appearance: Present: no acute distress, well-nourished - EENT Eyes: Present: PERRL ENT: hearing intact, clear oral mucosa - Neck Neck: Present: supple, normal ROM - Respiratory Respiratory effort: normal Respiratory: bilateral: CTA - Cardiovascular Heart Sounds: Present: S1 & S2. Absent: rub, click - Extremities Extremities: pulses symmetrical, No edema Peripheral Pulses: within normal limits - Abdominal General gastrointestinal: Present: soft, non-tender, non-distended, normal bowel sounds Male genitourinary: Present: normal - Integumentary Integumentary: Present: clear, warm, dry - Musculoskeletal Musculoskeletal: gait normal, strength equal bilaterally - Psychiatric Psychiatric: appropriate mood/affect, intact judgment & insight - Neurologic Neurologic: CNII-XII intact, moves all extremities Plan Activity: other (No lifting or straining) Weight Bearing Status: Full Weight Bearing Diet: regular Wound: open to air Follow up with: PRIMARY CARE, [Primary Care Provider] - 3-5 Days ALVARO GALARZA MD [Staff Physician] - 7 Days
--- NOTE | 2020-11-13 13:03 | Progress Note ---
Assessment and Plan Acute cholecystitis History of COVID-19 pneumonia History of paroxysmal atrial fibrillation, NSR on tele DVT prophylaxis --Status post cholecystectomy by general surgeon. -Patient tolerating full liquid diet and pain under control --Patient is planned for discharge today with outpatient follow-up with Dr. Chan -Discharge plan and management was discussed with the patient and he verbalized understanding Subjective Date of service: 11/13/20 Interval history: Patient seen and examined. Medical records and medication list reviewed. No acute event overnight noted by the RN. Patient denies any chest pain or difficulty breathing. Patient is tolerating full liquid diet. Status post cholecystectomy yesterday Discussed plan of care at bedside with patient. Objective - Exam Narrative Exam: GENERAL: well-developed and well-nourished white male lying on bed appeared to be in no discomfort. HEENT: Normocephalic. Atraumatic. No conjunctival congestion or icterus. Patient has moist mucous membranes. NECK: Supple. Trachea midline. CHEST/LUNGS: Clear to auscultated bilaterally, breathing nonlabored. No wheezes crackles or rhonchi. HEART/CARDIOVASCULAR: Regular in rate and rhythm. S1 and S2 positive. ABDOMEN: Abdomen is soft, laparoscopic incision ocrinne in place. Patient has normal bowel sounds. SKIN: There is no rash. Warm and dry. NEURO: No focal motor deficit. Follows command. MUSCULOSKELETAL: No joint effusion or tenderness. EXTRIMITY: No edema, no cyanosis or clubbing. PSYCH: Cooperative. - Constitutional Vitals: Vital Signs - 12hr 11/13/20 11/13/20 05:22 07:43 Temperature 98.3 F 98.0 F Pulse Rate 50 L 52 L Respiratory 18 16 Rate Blood Pressure 119/57 112/50 O2 Sat by Pulse 99 98 Oximetry - Labs CBC & Chem 7: 11/13/20 04:57 11/13/20 04:57 Labs: Abnormal lab results 11/12/20 11/13/20 11/13/20 Range/Units 13:05 04:57 04:57 RBC 5.25 H (3.65-5.03) M/mm3 Hgb 15.4 H (11.8-15.2) gm/dl MCHC 35 H (32-34) % RDW 12.6 L 12.8 L (13.2-15.2) % Lymph % (Auto) 8.0 L (13.4-35.0) % Lymph # (Auto) 0.8 L (1.2-5.4) K/mm3 Seg Neutrophils % 87.1 H (40.0-70.0) % Seg Neutrophils # 8.2 H (1.8-7.7) K/mm3 Creatinine 0.7 L (0.8-1.3) mg/dL Glucose 123 H (75-100) mg/dL
[2020-11-13] MEDS ORDERED: PIPERACIL/TAZOBACTA 4.5/NS 100 4.5 GM/100 ML VIAL IV SCH (14:00)
--- NOTE | 2020-11-18 13:30 | Anesthesia Consultation ---
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 STOPPED 5 YEARS AGO. SMOKES MARIJUANA WEEKLY.) Hx Cancer: No
--- NOTE | 2020-11-18 13:31 | Post Anesthesia Evaluation ---
- Post Anesthesia Evaluation Patient Participated: Yes Airway Patent: Yes Stable Respiratory Function: Yes Nausea/Vomiting: No Temp > 96.8F: Yes Pain Manageable: Yes Adequeate Hydration: Yes Anesthesia Complications: No Block Receding Appropriately: Not Applicable Patient on Ventilator: No
--- NOTE | 2020-11-18 13:31 | Anesthesia Day of Surgery ---
Anesthesia Day of Surgery - Day of Surgery Patient Examined: Yes Patient H&P Reviewed: Yes Patient is NPO: Yes
== END 2020-11-13 15:00 | disposition home or self-care (01) ==
LOC: ED 21:46 → 3A 11-12 16:07 → 3B-SURG 11-12 18:21
PROVIDERS: ADMIT Internal Medicine; ATTEND Internal Medicine
DX: K81.1 Chronic cholecystitis (principal); I48.0 Paroxysmal atrial fibrillation; K82.9 Disease of gallbladder, unspecified; F41.9 Anxiety disorder, unspecified; F12.90 Cannabis use, unspecified, uncomplicated; F11.90 Opioid use, unspecified, uncomplicated; R53.1 Weakness; Z91.19 Patient's noncompliance with other medical treatment and regimen; Z90.49 Acquired absence of other specified parts of digestive tract; Z86.16 Personal history of COVID-19
CPT/HCPCS: 36415; 47562; 80048; 80053; 80076; 82140; 82150; 83690; 85025; 87040; 88304; 96361; 96365; 96366; 96372; 96375; 96376; 99284; G0378; J0330; J1170; J1885; J2250; J2270; J2405; J2543; J2704; J2765; J3010; J7030; Q0162